=== PATIENT | male | born 1950 | race Caucasian/White ===

== ENCOUNTER 2019-01-27 03:48 | Observation (INO) | payer MEDICARE, BC, SELFPAY ==
[2019-01-27] VITALS (11 sets, daily range): BP systolic 106–158; BP diastolic 61–86; PULSE 72–91; RESP 14–20; TEMP 35.6–36.9; O2SAT 93–100; BMI 32.2; BMI 28.3
--- NOTE | 2019-01-27 03:52 | RAD_ITS ---
STUDY: X-RAY CHEST REASON FOR EXAM: Male, 68 years old. Recent fall and possible syncope. TECHNIQUE: Single AP portable view of the chest. COMPARISON: Prior comparison studies are not available for review at this time. FINDINGS: Cardiac monitoring leads are present. The lungs are clear and expanded. There is no demonstrated pleural abnormality. Normal size heart. Normal mediastinum and bailey. Normal visualized pulmonary arteries. Normal visualized aortic arch and descending thoracic aorta. Normal visualized thoracic spine. Normal visualized ribs, clavicles, and shoulders. There is no demonstrated abnormality of the visualized soft tissue structures of the upper abdomen. RAD/Chest 1 View (Portable) IMPRESSION: No radiographic evidence of acute cardiopulmonary disease. Electronically Signed: Joana Milan MD at 4:30 EDT , Service support ,
--- NOTE | 2019-01-27 03:52 | CT_ITS ---
STUDY: CT BRAIN WITHOUT CONTRAST REASON FOR EXAM: Male, 68 years old. Patient was found unconscious with evidence for closed head injury. RADIATION DOSAGE (If Supplied By Facility): CTDIvol = ( 44.99 ) mGy, DLP = ( 914.22 ) mGycm TECHNIQUE: Transaxial CT imaging of the brain was performed without administration of intravenous contrast material. Multiplanar reformations are submitted for interpretation. Individualized dose optimization techniques were used for this CT. COMPARISON: No relevant priors. FINDINGS: There is a soft tissue contusion adjacent to the right parietal cranium with probable associated laceration. Normal calvarium. There is mild cerebral atrophy with widening of the extra-axial spaces and ventricular dilatation. Normal white matter tracts of the cerebral hemispheres. Normal basal ganglia and thalami. Normal brainstem. Normal cerebellum. There is no intracranial hemorrhage. There is minimal atherosclerotic calcification of the intracranial arteries. Normal visualized paranasal sinuses. CT/Brain/Head without Contrast IMPRESSION: 1. No CT evidence of acute intracranial hemorrhage. 2. Right parietal scalp contusion. Electronically Signed: Joana Milan MD at 4:45 EDT , Service support ,
--- NOTE | 2019-01-27 03:52 | EKG12_ITS ---
Test Reason : CP Blood Pressure : / mmHG Vent. Rate : 070 BPM Atrial Rate : 070 BPM P-R Int : 110 ms QRS Dur : 082 ms QT Int : 424 ms P-R-T Axes : 040 044 -08 degrees QTc Int : 457 ms Sinus rhythm with short CO Otherwise normal ECG Confirmed by RADHA HAMMOND ([id number]), news assignment editor MARISELA ANDERSON ([id number]) on 02/01/2019 2:05:12 PM Referred By: SNEHA Confirmed By:RADHA HAMMOND
--- NOTE | 2019-01-27 03:53 | CT_ITS ---
STUDY: CT CERVICAL SPINE WITHOUT CONTRAST REASON FOR EXAM: Male, 68 years old. Recent closed head injury and possible syncope. RADIATION DOSAGE (If Supplied By Facility): CTDIvol = ( 24.23 ) mGy, DLP = ( 621.91 ) mGycm TECHNIQUE: High resolution transaxial imaging was performed without contrast material. Sagittal and coronal images were reconstructed. Individualized dose optimization techniques were used for this CT. COMPARISON: Prior comparison studies are not available for review at this time. FINDINGS: Normal craniovertebral junction. There are degenerative changes of the anterior atlantoaxial articulation. Normal odontoid process. Normal cervical lordosis. The vertebral bodies have generally normal height and alignment. C2-3: Normal endplates. Normal disc height and morphology. Normal central canal and intervertebral neuroforamina. C3-4: There is severe left-sided neural foraminal narrowing and moderate right-sided foraminal narrowing secondary to uncovertebral and facet joint arthropathy. There is no significant central acquired canal stenosis. C4-5: Normal endplates. Normal disc height and morphology. Normal central canal. There is severe left-sided neural foraminal narrowing secondary to moderately severe left-sided facet joint arthropathy. The right neural foramen is mildly narrowed. C5-6: There is narrowing of the disc space with small endplate osteophytes. There is severe bilateral neural foraminal narrowing with uncovertebral and facet joint arthropathy. There is a disc bulge and osteophyte complex with mild central acquired canal stenosis. C6-7: There is narrowing of the disc space with small endplate osteophytes. There is a broad disc protrusion osteophyte complex with mild central acquired canal stenosis. There is severe bilateral middle foraminal narrowing secondary to uncovertebral joint hypertrophy. C7-T1: Normal endplates. Normal disc height and morphology. Normal central canal and intervertebral neuroforamina. Bilateral lung apices appear to be clear. Patchy lucencies are visible to right lung apex probably related to paraseptal emphysema. Paraspinal soft tissues are within normal limits. The nasopharynx, oropharynx, hypopharynx and larynx have a normal appearance. CT/Spine Cervical without Contras IMPRESSION: 1. No CT evidence of acute compression or displaced fracture. 2. Multilevel degenerative disc disease and degenerative arthropathy of the cervical spine with neural foraminal narrowing and acquired canal stenosis. Electronically Signed: Joana Milan MD at 4:56 EDT , Service support ,
[2019-01-27 04:37] LABS: Absolute Lymphocyte Count 0.99 X10^3/uL (0.83-4.51); Absolute Neutrophil Count 10.5 X10^3/uL (2.0-7.7); Basophil# 0.03 X10^3/uL; Basophil% 0.3 % (0-1); Eosinophil# 0.03 X10^3/uL; Eosinophils% 0.3 % (0-5); Hemoglobin 10.7 g/dL (13.0-16.5); Lymphocyte # 0.99 X10^3/ul (4.0); Lymphocyte % 8.3 % (19-41); Mean Corp Hgb Conc 35.7 g/dL (32-36); Mean Corpuscular Hgb 32.8 pg (27.0-32.0); Mean Platelet Vol. 10.5 fl (6.2-12.0); Monocyte% 3.3 % (0-10); NRBC Flagged by Analyzer 0 % (0-5); Neutrophil # 10.45 X10^3/uL (2.7-7.7); Neutrophil % 87.1 % (47-70); Platelet Count 205 K/mm3 (150-450); RBC Distribution Width CV 11.9 % (11.6-14.6); RBC Distribution Width SD 39.8 fl (35.1-43.9); Red Blood Count 3.26 M/mm3 (4.6-6.2)
[2019-01-27] MEDS: 0.9% Normal Saline 1,000 ML 150 ML IV ×3 (04:45→19:15)
[2019-01-27 04:55] LABS: Anion Gap 14 (5-15); BUN 14 mg/dL (7-18); BUN/Creat Ratio 20.1 RATIO (10-20); Calcium,Total 8.5 mg/dL (8.5-10.1); Chloride 94 mmol/L (98-107); EST Glomerular Filtration Rate 121 mL/min (>60); Est Glom Filt Rate - Afr Amer 146 mL/min (>60); Estimated Creatinine Clearance 75.03 ml/min; Glucose 169 mg/dL (74-106); Sodium Level 130 mmol/L (136-145)
--- NOTE | 2019-01-27 05:27 | PCM.HP.STD ---
Problem List (1) Chest pain Status: Acute Qualifiers: Chest pain type: unspecified Qualified Code(s): R07.9 - Chest pain, unspecified (2) CAD (coronary artery disease) Status: Chronic Qualifiers: Coronary Disease-Associated Artery/Lesion type: unspecified vessel or lesion type [place] vs. transplanted heart: unspecified whether [place] or transplanted heart Associated angina: angina presence unspecified Qualified Code(s): I25.10 - Atherosclerotic heart disease of [place] coronary artery without angina pectoris (3) HTN (hypertension) Status: Chronic Qualifiers: Hypertension type: essential hypertension Qualified Code(s): I10 - Essential (primary) hypertension (4) HLD (hyperlipidemia) Status: Chronic Qualifiers: Hyperlipidemia type: unspecified Qualified Code(s): E78.5 - Hyperlipidemia, unspecified (5) Obesity Status: Chronic Qualifiers: Obesity type: due to excess calories Serious obesity comorbidity presence: with serious comorbidity (6) Diabetes mellitus, type II Status: Chronic Qualifiers: Diabetes mellitus skilled nursing insulin use: without termite technician use Diabetes mellitus complication status: with other specified complication Qualified Code(s): E11.69 - Type 2 diabetes mellitus with other specified complication (7) Alcohol abuse Status: Chronic History of Present Illness Date of Admission: 01/27/19 Chief Complaint: Intoxicated, Fall versus Passed out, CP The patient is a 68 y/o M w/ PMHx: CAD s/p PCI, EtOH Abuse, HTN, HLD, Obesity who presents to the [facility] [place] ED On 01/27/19 s/p fall at unclear time while intoxicated, either passed out or fell but does not recall the event, hitting his head on the deck, found by his with scalp contusion, headache with nausea and notable fatigue with noted onset of chest pain while in the ED, described as mid sternal and left-sided chest tightness with no further radiation with associated mild dyspnea, increased nausea with no emesis and no specific diaphoresis, rated 7 out of 10, very transient in nature with resolution while in the emergency room, rated 4 out of 10 upon evaluation but reproducible with palpation. Work-up in the ED included T 96.1, heart rate 81, BP 106/61, respiratory rate 20, 98% on room air, CBC with W BC 12, hemoglobin 10.7, platelet 205 with left shift, BMP with sodium 130, chloride 94, glucose 169, troponin less than 0.015, ethyl alcohol 145, EKG with sinus rhythm with no acute evidence of ischemia, chest x-ray with no acute cardiopulmonary findings, CT head with no acute intracranial hemorrhage, right parietal scalp contusion present, CT cervical spine with no acute evidence of compression or displaced fracture with multilevel degenerative disc disease and degenerative arthropathy of the cervical canal with neural foraminal narrowing and acquired canal stenosis. In the ED patient scalp laceration was sutured per ED physician. In the ED patient administered aspirin 162 mg p.o. x1 in addition to normal saline. Past Medical History Past Medical History (Chronic Problems): Chronic Problems CAD (coronary artery disease) (Chronic) HTN (hypertension) (Chronic) HLD (hyperlipidemia) (Chronic) Obesity (Chronic) Diabetes mellitus, type II (Chronic) Alcohol abuse (Chronic) Allergies celecoxib [From Celebrex] Allergy (Verified 01/27/19 03:54) Other Home Medications: Ambulatory Orders Medication Instructions Recorded Atorvastatin Calcium [Lipitor] 80 mg PO QHS 01/27/19 Carvedilol 6.25 mg PO BID 01/27/19 Hydrochlorothiazide 12.5 mg PO DAILY 01/27/19 Lisinopril 40 mg PO DAILY 01/27/19 Metformin HCl 1,000 mg PO BID 01/27/19 Surgical History: - - PCI x3, most recently greater than 2 years prior, bilateral knee arthroscopic surgery. Psychiatric History: No pertinent psych hx Lives: Spouse/ Significant Other Smoking Status: Former smoker - Patient quit cigarette tobacco usage greater than 20 years prior with prior to this 1/2 pack/day cigarette tobacco usage. Tobacco Use: Non-smoker Alcohol: Heavy - Patient with 2 beer and several mixed drinks, at least 2 double shot whiskeys daily. Drugs: None - *Family History Maternal History Items: Hypertension Paternal History Items: Unknown - Patient notes that his father lived to age 87 but he does not know him well nor his medical history. Sibling History Items: - - Patient notes a brother who has a history of lung cancer with concurrent tobacco use history. Review of Systems Constitutional: Reports: Anorexia, Malaise, Weakness, Fatigue. Denies: Chills, Fever, Weight Change HEENT: Reports: Head Aches. Denies: Sinus Congestion, Sinus Drainage Cardiovascular: Reports: Chest Pain, Chest Tightness, Light Headedness, Syncope. Denies: Chest Pressure, Heaviness, Orthopnea, Palpitations Respiratory: Denies: Cough, Shortness of breath at rest, Sputum production Gastrointestinal: Reports: Nausea. Denies: Abdominal Pain, Vomiting Genitourinary: Denies: Dysuria Musculoskeletal: Reports: Back Pain, Joint Pain, Neck Pain, Shoulder Pain. Denies: Joint Tenderness Skin: Reports: Skin Changes. Denies: Rash, Wounds Neurological: Denies: Numbness, Tingling, Focal weakness Psychiatric: Denies: Anxiety, Depression, Homicidal Ideations, Suicidal Ideations Hematologic/ Lymphatic: Reports: Anemia. Denies: Easy Bruising, Easy Bleeding VTE Information - Inpt Only VTE Present on Admission: No VTE Mechan Device Prophylaxis: SCD's VTE Pharm Prophylaxis ordered?: No Reason prophylaxis not ordered:: Medical Contraindication Patient Problems: Active and Suspected Problems Chest pain (Acute) Subjective: Seated upright in ED bed, fatigued appearing, notes ongoing headache. Objective: Physical Examination: General: awake, alert, oriented x 3 and cooperative, seated upright in the ED bed, fatigued and uncomfortable appearing, disheveled. Skin: normal color, turgor, no icterus, cyanosis except ecchymoses to the right lateral face, right sided face and lid edema, posterior scalp laceration status post suturing with bleeding currently controlled. HEENT: Recent head trauma with fall with laceration, sutured, bleeding currently controlled/NC, EOMI, PERRLA, dry MM, no carotid bruits or JVD noted ecchymoses to the face as noted, see skin. Lungs: CTA bilaterally, moderate effort, mild decrease BL bases, no rales, ronchi or wheezing. Heart: Regular rate and rhythm; no gallop, rub audible. Abdomen: soft, NTTP, ND, normal BS, positive HM. Extremities: no cyanosis, clubbing, or edema. Neurological: patient awake, alert, oriented x 3; cognitive function improving, despite intoxication, moderately near baseline intact; pupils equally reactive to light and accomodation; cranial nerves II-XII grossly normal, moving all 4 extremities, no focal deficits, strength moderately to severely global decrease secondary to acute presentation. Psychiatric: affect appears fatigued, uncomfortable, no acute evidence of depressive or anxiety feelings. - Physical Exam Vital Signs Temp Pulse Resp BP Pulse Ox 96.1 F L 81 20 H 106/61 98 09/11/19 03:48 01/27/19 03:48 01/27/19 03:48 01/27/19 03:48 01/27/19 03:48 Oxygen Delivery Method Room Air Weight: 224 lb 13.944 oz Body Mass Index (BMI) 32.2 Laboratory Tests Past 24 Hrs 01/27/19 01/27/19 01/27/19 04:30 04:30 04:30 WBC 12.0 H RBC 3.26 L Hgb 10.7 L Hct 30.0 L MCV 92.0 MCH 32.8 H MCHC 35.7 RDW Std Deviation 39.8 RDW Coeff of Jolene 11.9 Plt Count 205 MPV 10.5 Immature Gran % (Auto) 0.700 Neut % (Auto) 87.1 H Lymph % (Auto) 8.3 L [place] % (Auto) 3.3 Eos % (Auto) 0.3 Baso % (Auto) 0.3 Absolute Neuts (auto) 10.5 H Absolute Lymphs (auto) 0.99 Nucleated RBC % 0 Sodium 130 L Potassium 4.0 Chloride 94 L Carbon Dioxide 22.0 Anion Gap 14 BUN 14 Creatinine 0.70 Estim Creat Clear Calc 75.03 Est GFR (MDRD) Af Amer 146 Est GFR (MDRD) Non-Af 121 BUN/Creatinine Ratio 20.1 H Glucose 169 H Calcium 8.5 Troponin I < 0.015 Ethyl Alcohol 145.0 Assessment/Plan All Active Problems Chest pain (Acute) The patient is a 68 y/o M w/ PMHx: CAD s/p PCI, EtOH Abuse, HTN, HLD, Obesity who presents to the [facility] [place] ED On 01/27/19 s/p fall at unclear time while intoxicated, either passed out or fell but does not recall the event, hitting his head on the deck, found by his with scalp contusion, headache with nausea and notable fatigue with noted onset of chest pain while in the ED, described as mid sternal and left-sided chest tightness. 1. Chest Pain: Reproducible upon evaluation, suspect component of musculoskeletal, strain with recent fall. Work-up in the ED included T 96.1, heart rate 81, BP 106/61, respiratory rate 20, 98% on room air, CBC with W BC 12, hemoglobin 10.7, platelet 205 with left shift, BMP with sodium 130, chloride 94, glucose 169, troponin less than 0.015, ethyl alcohol 145, EKG with sinus rhythm with no acute evidence of ischemia, chest x-ray with no acute cardiopulmonary findings. Will admit to PCU, place on a monitored bed to assure no acute myocardial infarction with serial cardiac enzymes and EKGs. Given presentation with recent fall, possible trauma while intoxicated will defer immediate intent for cardiac stress testing until improved clinical status. ASA, NG, morphine. Mag pending, FLP in AM. 2. EtOH Abuse with intoxication, suspected mechanical fall versus passed out: Patient notes routine consumption of alcohol daily, specifically beer or mixed drinks, notes usually 2 beers and 2 double shot of mixed whiskey drinks. Will maintain on CIWA protocol, MVI, thiamine and folic acid. Magnesium and phosphorus pending. Case management consulted. 3. Hyponatremia, chronic, secondary to alcohol abuse: Admission sodium 130 likely secondary to alcohol abuse in addition to hydrochlorothiazide usage, holding, hydrating given acute intoxication presentation, repeat BMP in a.m. 4. Normocytic anemia, chronic: Admission hemoglobin 10.7, appears anemic prior, will obtain iron panel, vitamin B12 and folic acid level. 5. CAD: s/p prior PCI, will maintain on aspirin, statin, Coreg, lisinopril regimen. 6. Diabetes mellitus type II: Hold oral home regimen, ADA diet, accu checks w/ ISS. 7. Hypertension: Continue home regimen including Coreg, lisinopril, holding hydrochlorothiazide with further hold parameters, PRN hydralazine. 8. Hyperlipidemia: Continue home statin regimen. AM FLP. 9. Obesity: Weight loss and lifestyle changes encouraged. 10. DVT prophylaxis: SCDs, given recent fall, laceration with sutures will defer chemoprophylaxis. Code Visit OBSV E&M: 29529 Initial observation care L3
--- NOTE | 2019-01-27 05:29 | ED.DCSUM_ITS ---
- ER Visit Summary Date of Service: 01/27/19 Chief Complaint: [Head injury and chest pain] History of Present Illness: The patient is a 68 M [Zentz to the emergency department complaint of a head injury that occurred this morning. Patient really is not sure what happened. Patient's was sleeping when she woke up to use the restroom noted that all the lights were on outside and so she went to check and see where her was found him on the deck on the ground with a poor blood. Its believe he may have hit his head on the outdoor fireplace. Patient complains of a headache. In route to the hospital he started complaining of chest pain and cramping in his left chest. Patient denies any shortness of breath. He initially denied any neck pain. He denies any abdominal pain. Patient has been drinking. Patient drinks every day. Patient has history of heart disease with 3 cardiac stents last of which were placed about a year ago.] Patient is not on any blood thinners other than a baby aspirin daily. Physical Examination: [HEENT-PERRLA, EOMI. Cranial nerves II through XII grossly intact. TMs clear. Mucous membranes moist. No adenopathy. Patient presented with c-collar in place. Patient had bloody bandage around his head. He has a 1 cm laceration over the right parietal scalp with hematoma and contusion noted. No bony step-offs noted. Patient had some mild diffuse C- spine tenderness on palpation without any bony step-offs noted. Cardiovascular-regular rate and rhythm without murmur or ectopy Lungs-clear to auscultation, chest wall stable without crepitus or subcu emphysema Abdomen-normoactive bowel sounds, soft, nontender, no rebound or rigidity, no peritoneal signs. Extremities-intact ?4, normal range of motion, normal pulses, atraumatic] Test Results: [EKG obtained on arrival showed a sinus rhythm with a ventricular rate of 70 bpm with no acute segment changes. CBC with differential showed a white count of 12,000, hemoglobin 10.7, hematocrit 30, placed 205. Chemistries unremarkable. Troponin is less than 0.15. Alcohol was 145. CT scan of the brain without contrast showed a right scalp hematoma otherwise nothing acute. CT scan of the cervical spine show degenerative changes and canal stenosis. Maribell st x-ray showed nothing acute.] Emergency Department Course and Treatment: [Patient was given 2 baby aspirin. Patient stated that his chest pain resolved without any treatment in the emergency department.] Treatment Plan: [Admit for observation.] Disposition: [Admit] Impression: [Fall with closed head injury Scalp laceration 1 cm with simple repair Chest pain] This note was generated with [employer] dictation software. It may contain incorrect words, spelling, and punctuation that were not noted in review of the chart prior to signing ED Disposition - Plan for ED Patient: Referrals: Brandon Choi MD [Primary Care Provider] -
[2019-01-27] MEDS: Aspirin 81 MG TAB.CHEW 162 MG PO (05:52)
--- NOTE | 2019-01-27 06:15 | EKG12_ITS ---
Test Reason : CP ADMISSION Blood Pressure : / mmHG Vent. Rate : 078 BPM Atrial Rate : 078 BPM P-R Int : 148 ms QRS Dur : 080 ms QT Int : 422 ms P-R-T Axes : 048 035 -26 degrees QTc Int : 481 ms Normal sinus rhythm Nonspecific T wave abnormality Prolonged QT Abnormal ECG When compared with ECG of 27-JAN-2019 04:02, MANUAL COMPARISON REQUIRED, DATA IS UNCONFIRMED Confirmed by LING REYNOLDS, EITAN ([id number]), editor dictionary MARISELA ANDERSON ([id number]) on 02/01/2019 4:03:03 PM Referred By: VIJAY EUCEDA Confirmed By:RACHEL DUBON MD
[2019-01-27 06:35] LABS: AST(SGOT) 22 U/L (15-37); Alanine Aminotransfer ALT/SGPT 34 U/L (16-61); Albumin, Serum 3.5 g/dL (3.2-5.0); Alkaline Phosphatase 77 U/L (45-117); Bilirubin, Direct 0.17 mg/dL (0.00-0.30); Magnesium 1.9 mg/dL (1.6-2.6); Phosphorus 3.9 mg/dL (2.5-4.9); Protein, Total 6.5 g/dL (6.4-8.2)
[2019-01-27] MEDS: Thiamine Hydrochloride 100 MG Tablet PO ×2 (09:31→16:48)
[2019-01-27] MEDS: Famotidine 20 MG Tablet PO ×2 (09:31→21:16)
[2019-01-27] MEDS: Aspirin E.C. 81 MG Tablet PO (09:31)
[2019-01-27] MEDS: Lisinopril 40 MG Tablet PO (09:31)
[2019-01-27] MEDS: Carvedilol 6.25 MG Tablet PO ×2 (09:31→21:16)
[2019-01-27] MEDS: Folic Acid 1 MG Tablet PO (09:31)
[2019-01-27] MEDS: Multivitamins,Ther W-Minerals Tablet 1 TABLET PO (09:31)
[2019-01-27 09:41] LABS: Bedside Glucose 110 mg/dL (70-110)
[2019-01-27 11:55] LABS: Bedside Glucose 190 mg/dL (70-110)
--- NOTE | 2019-01-27 13:10 | PN_ITS ---
Patient Problems: Active and Suspected Problems Chest pain (Acute) Subjective: Patient seen and examined. He was admitted in the early hours of this morning on account of a mechanical fall due to intoxication. He also has some chest pain on admission which was reproducible with palpation and thought to be musculoskeletal from fall. CT of the head showed no acute intracranial hemorrhage but he had a right scalp parietal contusion and CT of the cervical spine showed no evidence of compression or fracture. He had scalp laceration sutured in the ED and was admitted to manage for mechanical fall due to alcohol intoxication. Patient seen and examined this morning. He was calm and had no complaints. Chest pain had resolved. Patient admits to drinking too much and states he had been on vacation and still felt he was in the vacation mode. He cannot remember having any lightheadedness or dizziness or palpitations before passing out and states he thinks he passed out because he just drunk so much he passed out and was found on his deck by his . He admits to such heavy drinking episodes but states they are occasional. He denies ever being in rehab for alcohol abuse though he admits to needing help with his alcohol abuse. Review of systems otherwise negative. Labs and vitals reviewed. Chest pain is resolved. Vitals/I&O's: Vital Signs Temp Pulse Resp BP Pulse Ox 98.3 F 91 18 134/86 H 98 01/27/19 09:26 01/27/19 09:26 01/27/19 09:26 01/27/19 09:26 01/27/19 09:26 Oxygen Delivery Method Room Air Weight: 203 lb 4.259 oz Body Mass Index (BMI) 28.3 Intake and Output for Last 24 Hours 01/25/19 01/26/19 01/27/19 23:59 23:59 23:59 Intake Total 1482.5 / 1482.5 Balance 1482.5 / 1482.5 General: Alert, Oriented x3, Cooperative HEENT: Atraumatic, PERRLA, EOMI, Normocephalic Oral: Dry Mucosa Neck: Supple, No JVD, Negative Carotid Bruits Lungs: Clear to auscultation, Normal air movement, No rhonchi, No wheeze, No rales Cardiovascular: Regular rate, Regular Rhythm, Normal S1, Normal S2, No murmurs Abdomen: Bowel Sounds Present, Soft, Non Tender, Non-Distended, No Hepato- splenomegaly Extremities: No clubbing, No cyanosis, No edema, Capillary Refill Less than 3 Seconds Skin: - - sutured laceration on right parietal scalp Musculoskeletal: No Tenderness to Palpation of Joints or Extremities Lymphatic: No Cervical, Supraclavicular, or Inguinal Adenopathy Neurological: Cranial nerves II-XII grossly intact, Neuro grossly intact, Motor Exam 5/5 strength throughout Psych/Mental Status: Normal Affect, Appropriate, Alert and oriented to time, place, person, mood and affect Laboratory Results 01/27/19 04:30: WBC 12.0 H, RBC 3.26 L, Hgb 10.7 L, Hct 30.0 L, MCV 92.0, MCH 32.8 H, MCHC 35.7, RDW Std Deviation 39.8, RDW Coeff of Jolene 11.9, Plt Count 205, MPV 10.5, Immature Gran % (Auto) 0.700, Neut % (Auto) 87.1 H, Lymph % (Auto) 8.3 L, [place] % (Auto) 3.3, Eos % (Auto) 0.3, Baso % (Auto) 0.3, Absolute Neuts (auto) 10.5 H, Absolute Lymphs (auto) 0.99, Nucleated RBC % 0 01/27/19 04:30: Sodium 130 L, Potassium 4.0, Chloride 94 L, Carbon Dioxide 22.0, Anion Gap 14, BUN 14, Creatinine 0.70, Estim Creat Clear Calc 75.03, Est GFR (MDRD) Af Amer 146, Est GFR (MDRD) Non-Af 121, BUN/Creatinine Ratio 20.1 H, Glucose 169 H, Calcium 8.5, Troponin I < 0.015 01/27/19 04:30: Ethyl Alcohol 145.0 01/27/19 04:30: Total Bilirubin 0.60, Direct Bilirubin 0.17, AST 22, ALT 34, Alkaline Phosphatase 77, Total Protein 6.5, Albumin 3.5, Globulin 3.0 01/27/19 04:30: Phosphorus 3.9, Magnesium 1.9 01/27/19 07:35: Troponin I < 0.015 01/27/19 09:29: POC Glucose 110 01/27/19 10:35: Troponin I 0.017 01/27/19 11:51: POC Glucose 190 H Diagnostic Data Brain CT 01/27/19 03:52 IMPRESSION: 1. No CT evidence of acute intracranial hemorrhage. 2. Right parietal scalp contusion. Electronically Signed: Joana Milan MD at 4:45 EDT , Service support , Chest X-Ray 01/27/19 03:52 IMPRESSION: No radiographic evidence of acute cardiopulmonary disease. Electronically Signed: Joana Milan MD at 4:30 EDT , Service support , Cervical Spine CT 01/27/19 03:53 IMPRESSION: 1. No CT evidence of acute compression or displaced fracture. 2. Multilevel degenerative disc disease and degenerative arthropathy of the cervical spine with neural foraminal narrowing and acquired canal stenosis. Electronically Signed: Joana Milan MD at 4:56 EDT , Service support , Current Medications Acetaminophen (Tylenol) 650 mg PO Q6H PRN PRN PRN Reason: Non-cardiac pain (mod-severe) Hydrocodone Bitart/Acetaminophen ([place] 5mg-325mg) 1 - 2 tablet PO Q6H PRN PRN PRN Reason: MOD-SEVERE PAIN (4-10/10) Al Hydroxide/Mg Hydroxide (Mylanta Ii) 15 - 30 ml PO Q4H PRN PRN PRN Reason: INDIGESTION Albuterol Sulfate (Ventolin Aerosols) 2.5 mg INHALATION Q2H PRN PRN PRN Reason: dyspnea, wheezing Aspirin (Ecotrin) 81 mg PO DAILY@0800 [facility] Last Admin: 01/27/19 09:31 Dose: 81 mg Documented by: Atorvastatin Calcium (Lipitor) 80 mg PO QHS [facility] Carvedilol (Coreg) 6.25 mg PO BID [facility] Last Admin: 01/27/19 09:31 Dose: 6.25 mg Documented by: Dextrose (D50w Syringe) 0 gm IV X1 PRN; Protocol PRN Reason: Hypoglycemia Famotidine (Pepcid) 20 mg PO BID [facility] Last Admin: 01/27/19 09:31 Dose: 20 mg Documented by: Folic Acid (Folic Acid) 1 mg PO DAILY@0800 [facility] Stop: 01/29/19 08:01 Last Admin: 01/27/19 09:31 Dose: 1 mg Documented by: Glucagon () 1 mg IM .X1 PRN PRN Reason: Hypoglycemia Hydralazine HCl (Apresoline Iv) 10 mg IV Q4H PRN PRN PRN Reason: SBP > 160 Sodium Chloride () 1,000 mls @ 150 mls/hr IV .Q6H40M [facility] Last Admin: 01/27/19 11:19 Dose: 150 mls/hr Documented by: Insulin Human Lispro (Humalog Kwikpen (Bkc)) 0 unit SC [facility]; Protocol Last Admin: 01/27/19 12:18 Dose: Not Given Documented by: Lisinopril (Zestril) 40 mg PO DAILY [facility] Last Admin: 01/27/19 09:31 Dose: 40 mg Documented by: Lorazepam (Ativan) 2 mg PO Q2H PRN PRN; Protocol PRN Reason: CIWA score > 8 but <15 Lorazepam (Ativan) 2 mg PO UD PRN; Protocol PRN Reason: CIWA score >/=15. Lorazepam (Ativan) 2 mg IV Q2H PRN PRN; Protocol PRN Reason: CIWA score > 8 but <15 Lorazepam (Ativan) 2 mg IV UD PRN; Protocol PRN Reason: CIWA score >/=15. Magnesium Hydroxide (Milk Of Magnesia) 30 ml PO DAILY PRN PRN Reason: Constipation Morphine Sulfate () 1 - 2 mg IV Q4H PRN PRN PRN Reason: PAIN Multivitamins/Minerals ([facility]ivitamin With Minerals) [facility] Last Admin: 01/27/19 09:31 Dose: 1 tablet Documented by: Nitroglycerin (Nitrostat) 0.4 mg SUBLINGUAL Q5M PRN PRN Reason: CARDIAC/CHEST PAIN Ondansetron HCl (Zofran) 4 mg IV Q8H PRN PRN PRN Reason: NAUSEA/VOMITING Thiamine HCl (Vitamin B1) [facility] Stop: 01/29/19 17:01 Last Admin: 01/27/19 09:31 Dose: 100 mg Documented by: Medical Necessity - Tobacco Use Smoking Status: Former smoker Tobacco Use: Non-smoker Assessment/Plan All Active Problems Chest pain (Acute) 1. Right parietal scalp laceration due to mechanical fall * CT had was negaive for any intracranial bleed or fracture * laceration sutured in ED * on Tylenol and [place] for pain * 2. Mechanical fall due to alcohol intoxication * Admits to binge drinking until he passed out. Fell and hit his head. * Alcohol level is 145 on admission. * EKG showed no acute ST changes and chest x-ray showed no acute pulmonary findings. * PT OT consult. For precautions. * 3. Chest pain likely musculoskeletal: * Chest pain started after he woke up from the fall and was reproducible with palpation. * Chest pain resolved at time of review. EKG showed no acute ST changes and troponins were negative. * on tylenol and norco. WIll defer on stress testing for now. * 4. Hyponatremia: Na was 130 on admission; likely chronic in light of his chronic alcohol abuse. 5. CAD s/p stents: on aspirin, statin, coreg and lisinopril 6. TYpe 2 diabetes mellitus: on ISS. Accuchecks ACHS. On metformin at home; will hold for now. 7. Hypertension: on coreg and lisinopril. HCTZ on hold o/a of hyponatremia. BP well controlled 8. Hyperlipidemia: on statin DVT prophylaxis: SCDs. No anticoagulation o/a of recent fall and scalp laceration Code Visit OBSV E&M: 58125 Subsequent observation care L2
--- NOTE | 2019-01-27 15:18 | CHAPLAIN ---
Type of Pastoral Visit _x__ Initial Visit ___ Follow-up Visit ___ On-call Visit ___ General Patient Visit ___ Spiritual Assessment ___ Family Conference ___ Bereavement ___ Rapid Response ___ Code Blue ___ Other (describe below) Pastoral Care Referral From _x__ Patient ___ Family ___ Nurse ___ Physician ___ Bench Scientist ___ Exhibitions And Collections Manager ___ Other (describe below) Sacrament/Intervention _x__ Active listening ___ Anointing ___ Congregation ___ Bereavement ___ Communion _x__ Kristin exploration ___ _x__ Life review _x__ Prayer ___ Reconciliation ___ Sacrament of Sick _x__ Supportive presence ___ Wedding ___ Other (describe below) Pastoral Comments spouse encourages patient to talk with this bow maker production about the reasons for his self medicating, his spiritual resources and thoughts; pt is open and willing to discuss these matters and welcomes visit and prayer; pt says that he is spiritual and Catholic but is not involved in a local orthodox;
[2019-01-27] MEDS: Insulin Lispro 100 UNIT/ML INSULN.PEN SC ×2 (16:48→21:16)
[2019-01-27 16:51] LABS: Bedside Glucose 178 mg/dL (70-110)
[2019-01-27 21:15] LABS: Bedside Glucose 195 mg/dL (70-110)
[2019-01-27] MEDS: Atorvastatin Calcium 80 MG Tablet PO (21:16)
[2019-01-28 00:13] VITALS: PULSE 80
[2019-01-28] MEDS: 0.9% Normal Saline 1,000 ML 150 ML IV (02:01)
[2019-01-28 03:00] VITALS: BP 130/69; PULSE 87; RESP 18; TEMP 36.8; O2SAT 98
[2019-01-28 03:04] VITALS: PULSE 82
[2019-01-28 05:52] LABS: Absolute Neutrophil Count 3.3 X10^3/uL (2.0-7.7); Basophil# 0.01 X10^3/uL; Basophil% 0.2 % (0-1); Eosinophil# 0.03 X10^3/uL; Eosinophils% 0.6 % (0-5); Hematocrit 22.3 % (40-54); Hemoglobin 7.6 g/dL (13.0-16.5); Lymphocyte % 18.7 % (19-41); Mean Corp Hgb Conc 34.1 g/dL (32-36); Mean Corpuscular Hgb 32.2 pg (27.0-32.0); Mean Corpuscular Volume 94.5 fL (80-94); Mean Platelet Vol. 10.6 fl (6.2-12.0); Monocyte# 0.56 X10^3/uL; Monocyte% 11.6 % (0-10); NRBC Flagged by Analyzer 0 % (0-5); Neutrophil % 68.5 % (47-70); Platelet Count 158 K/mm3 (150-450); RBC Distribution Width CV 12.4 % (11.6-14.6); RBC Distribution Width SD 42.6 fl (35.1-43.9); Red Blood Count 2.36 M/mm3 (4.6-6.2); White Blood Count 4.8 K/mm3 (4.4-11.0)
--- NOTE | 2019-01-28 05:55 | EKG12_ITS ---
Test Reason : AM EKG Blood Pressure : / mmHG Vent. Rate : 076 BPM Atrial Rate : 076 BPM P-R Int : 154 ms QRS Dur : 080 ms QT Int : 394 ms P-R-T Axes : 036 014 017 degrees QTc Int : 443 ms Normal sinus rhythm Cannot rule out Inferior infarct , age undetermined Abnormal ECG When compared with ECG of 27-JAN-2019 06:10, MANUAL COMPARISON REQUIRED, DATA IS UNCONFIRMED Confirmed by LING REYNOLDS, EITAN ([id number]), digital editor MARISELA ANDERSON ([id number]) on 02/01/2019 4:09:11 PM Referred By: DR EUCEDA Confirmed By:RACHEL DUBON MD
[2019-01-28] MEDS: Insulin Lispro 100 UNIT/ML INSULN.PEN SC (06:42)
[2019-01-28 06:51] LABS: Bedside Glucose 151 mg/dL (70-110)
[2019-01-28 07:05] VITALS: PULSE 73
[2019-01-28 07:16] LABS: Anion Gap 7 (5-15); BUN 11 mg/dL (7-18); BUN/Creat Ratio 13.6 RATIO (10-20); Calcium,Total 7.7 mg/dL (8.5-10.1); Chloride 108 mmol/L (98-107); Cholesterol 113 mg/dL (200); Creatinine, Serum 0.81 mg/dL (0.70-1.30); EST Glomerular Filtration Rate 101 mL/min (>60); Est Glom Filt Rate - Afr Amer 122 mL/min (>60); Estimated Creatinine Clearance 95.55 ml/min; Ferritin 77 ng/mL (26-388); Glucose 152 mg/dL (74-106); High Density Lipoprotein 40 mg/dL; Iron 91 ug/dL (65-175); Iron Binding Capacity,Total 266 ug/dL (250-450); PERCENT IRON SATURATION 34.2 % (15.0-55.0); Sodium Level 141 mmol/L (136-145); Triglycerides 91 mg/dL; Very Low Density Lipoprotein 18 mg/dL (5-40)
[2019-01-28 07:35] VITALS: O2SAT 95
[2019-01-28] MEDS: Thiamine Hydrochloride 100 MG Tablet PO (07:43)
[2019-01-28] MEDS: Folic Acid 1 MG Tablet PO (07:43)
[2019-01-28] MEDS: Aspirin E.C. 81 MG Tablet PO (07:43)
[2019-01-28] MEDS: Multivitamins,Ther W-Minerals Tablet 1 TABLET PO (07:43)
[2019-01-28 09:08] VITALS: BP 153/79; PULSE 90; RESP 18; TEMP 37; O2SAT 100
[2019-01-28] MEDS: Lisinopril 40 MG Tablet PO (09:10)
[2019-01-28] MEDS: Carvedilol 6.25 MG Tablet PO (09:10)
[2019-01-28] MEDS: Famotidine 20 MG Tablet PO (09:10)
[2019-01-28 09:50] LABS: Hematocrit 23.8 % (40-54); Hemoglobin 8.2 g/dL (13.0-16.5)
--- NOTE | 2019-01-28 09:56 | DCINST_ITS ---
- Discharge Diagnoses Current Active Problems: Current Active and Chronic Problems Chest pain (Acute) CAD (coronary artery disease) (Chronic) HTN (hypertension) (Chronic) HLD (hyperlipidemia) (Chronic) Obesity (Chronic) Diabetes mellitus, type II (Chronic) Alcohol abuse (Chronic) You will use the following diet at home:: Calorie/Carbohydrate Controlled (specify 1200, 1400, etc) - 1800 Your food should be the consistency of: Regular Your liquids should be the consistency of: Regular/Thin Discharge Activity: Return to Normal Activity Weight Bearing Status: Weight bearing as tolerated Call your doctor if you observe: Dizziness, Fainting spells, Uncontrolled pain Instructions: Addiction: Your Treatment Options, When a Patient Falls, Preventing Falls in the Home Additional Instructions: see PCP for repeat CBC in 3-4 days time Allergies/Adverse Reactions: Allergies celecoxib [From Celebrex] Allergy (Verified 01/27/19 03:54) Other Medications to take at Discharge Atorvastatin Calcium [Lipitor] 80 mg PO QHS 01/27/19 Carvedilol 6.25 mg PO BID 01/27/19 Hydrochlorothiazide 12.5 mg PO DAILY 01/27/19 Lisinopril 40 mg PO DAILY 01/27/19 Metformin HCl 1,000 mg PO BID 01/27/19 Primary Care Physician: Brandon Choi MD [Primary Care Provider] - Please follow up with your Primary Care Physician in: one week Test Results: Test results from this visit will be discussed in further detail at your follow- up appointment, if applicable. Proposed Discharge Date: 01/28/19
--- NOTE | 2019-01-28 09:58 | PCM.DC.SUM ---
Discharge Date and Diagnosis Date of Admission: 01/27/19 Date of Discharge: 01/28/19 - Primary Discharge Diagnosis Active and Suspected Problems musculoskeletal Chest pain (Acute) mechanical fall alcohol intoxication - Secondary Discharge Diagnosis Chronic Problems CAD (coronary artery disease) (Chronic) HTN (hypertension) (Chronic) HLD (hyperlipidemia) (Chronic) Obesity (Chronic) Diabetes mellitus, type II (Chronic) Alcohol abuse (Chronic) Hospital Course and Treatment Imaging Results: Diagnostic Data Brain CT 01/27/19 03:52 IMPRESSION: 1. No CT evidence of acute intracranial hemorrhage. 2. Right parietal scalp contusion. Electronically Signed: Joana Milan MD at 4:45 EDT , Service support , Chest X-Ray 01/27/19 03:52 IMPRESSION: No radiographic evidence of acute cardiopulmonary disease. Electronically Signed: Joana Milan MD at 4:30 EDT , Service support , Cervical Spine CT 01/27/19 03:53 IMPRESSION: 1. No CT evidence of acute compression or displaced fracture. 2. Multilevel degenerative disc disease and degenerative arthropathy of the cervical spine with neural foraminal narrowing and acquired canal stenosis. Electronically Signed: Joana Milan MD at 4:56 EDT , Service support , Operations: None Procedures: None Summary of Care Provided: Patient is a 68-year-old male with past medical history as listed. He was admitted through the ED in the early hours of with a complaint of a mechanical fall due to alcohol intoxication. Patient states he was still in the ng to do mood and was sitting on his stick and drinking. He drank so he passed out and fell down. His found him on the deck. He subsequently started complaining of chest pain which was reproducible with palpation was thought to be musculoskeletal. He was brought into the ED on account of the fall and CT of the head done showed no acute intracranial hemorrhage. He did have a right scalp parietal contusion and CT of the cervical spine showed no evidence of fracture or compression. He had scalp laceration sutured in the ED and was admitted and managed for mechanical fall due to alcohol intoxication. Troponins checked were negative and EKG showed no acute ST changes. Chest pain was markedly reproducible with palpation leading to the diagnosis of musculoskeletal chest pain due to mechanical fall. Patient remained stable and pain improved. He was able to ambulate well. On 01/28/2019, hemoglobin was noted to have fallen from 10.7-7.6. This was thought to be hemodilution all of his other cell lines WBC had fallen from 12-4.8 and platelets had also dropped from 205 to 158 with IV fluid administration. Repeat hemoglobin done was 8.2. Patient also stated he had a colonoscopy recently at [facility] and was negative, and he was told to have a follow-up in 5 years time. Patient remained stable and was discharged home on 01/28/2019. He is to follow-up with his primary care doctor and have a repeat CBC in about 3 to 4 days level. Patient counseled strongly about quitting drinking and he said he had gone cold turkey before and plans on doing so now. Patient seen and examined prior to discharge. He had no complaints and felt well. Review of systems otherwise negative. Labs and vitals reviewed. Home medication reviewed on consult. He was very eager to be discharged. o/e: Vital Signs Height 5 ft 11 in Weight: 203 lb 4.259 oz Weight in Pounds 203.3 lbs Pulse Ox 100 Temperature 98.6 F Pulse Rate 90 Respiratory Rate 18 Blood Pressure 153/79 Blood Pressure Position Sitting General: Alert, Oriented x3, Cooperative HEENT: Atraumatic, PERRLA, EOMI, Normocephalic Oral: Dry Mucosa Neck: Supple, No JVD, Negative Carotid Bruits Lungs: Clear to auscultation, Normal air movement, No rhonchi, No wheeze, No rales Cardiovascular: Regular rate, Regular Rhythm, Normal S1, Normal S2, No murmurs Abdomen: Bowel Sounds Present, Soft, Non Tender, Non-Distended, No Hepato-splenomegaly Extremities: No clubbing, No cyanosis, No edema, Capillary Refill Less than 3 Seconds Skin: - - sutured laceration on right parietal scalp Musculoskeletal: No Tenderness to Palpation of Joints or Extremities Lymphatic: No Cervical, Supraclavicular, or Inguinal Adenopathy Neurological: Cranial nerves II-XII grossly intact, Neuro grossly intact, Motor Exam 5/5 strength throughout Psych/Mental Status: Normal Affect, Appropriate, Alert and oriented to time, place, person, mood and affect Plan as above - Physical Exam Vital Signs Temp Pulse Resp BP Pulse Ox 98.6 F 90 18 153/79 H 100 01/28/19 09:08 01/28/19 09:08 01/28/19 09:08 01/28/19 09:08 01/28/19 09:08 Oxygen Delivery Method Room Air Weight: 203 lb 4.259 oz Body Mass Index (BMI) 28.3 Intake and Output for Last 24 Hours 01/26/19 01/27/19 01/28/19 23:59 23:59 23:59 Intake Total 3052.5 / 3492.5 2420 / 2420 Balance 3052.5 / 3492.5 2420 / 2420 Laboratory Tests Past 24 Hrs 01/27/19 01/28/19 01/28/19 10:35 05:25 05:25 WBC RBC Hgb Hct MCV MCH MCHC RDW Std Deviation RDW Coeff of Jolene Plt Count MPV Immature Gran % (Auto) Neut % (Auto) Lymph % (Auto) [place] % (Auto) Eos % (Auto) Baso % (Auto) Absolute Neuts (auto) Absolute Lymphs (auto) Nucleated RBC % Sodium 141 Potassium 4.0 Chloride 108 H Carbon Dioxide 26.0 Anion Gap 7 BUN 11 Creatinine 0.81 Estim Creat Clear Calc 95.55 Est GFR (MDRD) Af Amer 122 Est GFR (MDRD) Non-Af 101 BUN/Creatinine Ratio 13.6 Glucose 152 H Calcium 7.7 L Iron 91 TIBC 266 Iron Saturation 34.2 Ferritin 77 Troponin I 0.017 Triglycerides 91 Cholesterol 113 LDL Cholesterol 55 VLDL Cholesterol 18 HDL Cholesterol 40 Vitamin B12 Pending Folate 28.50 01/28/19 01/28/19 05:25 09:40 WBC 4.8 RBC 2.36 L Hgb 7.6 L 8.2 L Hct 22.3 L 23.8 L MCV 94.5 H MCH 32.2 H MCHC 34.1 RDW Std Deviation 42.6 RDW Coeff of Jolene 12.4 Plt Count 158 MPV 10.6 Immature Gran % (Auto) 0.400 Neut % (Auto) 68.5 Lymph % (Auto) 18.7 L [place] % (Auto) 11.6 H Eos % (Auto) 0.6 Baso % (Auto) 0.2 Absolute Neuts (auto) 3.3 Absolute Lymphs (auto) 0.90 Nucleated RBC % 0 Sodium Potassium Chloride Carbon Dioxide Anion Gap BUN Creatinine Estim Creat Clear Calc Est GFR (MDRD) Af Amer Est GFR (MDRD) Non-Af BUN/Creatinine Ratio Glucose Calcium Iron TIBC Iron Saturation Ferritin Troponin I Triglycerides Cholesterol LDL Cholesterol VLDL Cholesterol HDL Cholesterol Vitamin B12 Folate POC Glucose 01/28/19 01/27/19 01/27/19 06:39 21:13 16:45 POC Glucose 151 H 195 H 178 H 01/27/19 11:51 POC Glucose 190 H Discharge Diet: Low fat/ Low Cholesterol Discharge Activity: Return to Normal Activity Weight Bearing Status: Weight bearing as tolerated Call your doctor if you observe: Dizziness, Fainting spells, Uncontrolled pain Home Medications: Medications to take at Discharge Atorvastatin Calcium [Lipitor] 80 mg PO QHS 01/27/19 Carvedilol 6.25 mg PO BID 01/27/19 Hydrochlorothiazide 12.5 mg PO DAILY 01/27/19 Lisinopril 40 mg PO DAILY 01/27/19 Metformin HCl 1,000 mg PO BID 01/27/19 Primary Care Physician: Brandon Choi MD [Primary Care Provider] - Please follow up with your Primary Care Physician in: one week Patient Instructions: When a Patient Falls, Addiction: Your Treatment Options, Preventing Falls in the Home Disposition: Home Minutes spent on discharge:: 40 Patient Condition:: Stable Medical Necessity - Tobacco Use Smoking Status: Former smoker Tobacco Use: Non-smoker Meaningful Use Info Meaningful Use Diagnoses (Choose all that apply): None applicable Code Visit OBSV E&M: 06973 Observation care discharge
[2019-01-28] MEDS: Acetaminophen 325 MG Tablet 650 MG PO (10:05)
--- NOTE | 2019-01-28 10:12 | CASEMGMT ---
This RN CM to room with CABAN form at this time, explanation done-voices understanding, and pt signed CABAN form at this time. Original to chart and copy to pt at this time. Pt voices no further questions/concerns/needs at this time. SStaten RUMA GARCIA
--- NOTE | 2019-01-28 10:41 | CASEMGMT ---
SW met with patient, introduced self and role at [facility]. SW asked patient if he would like any resources to assist him with managing his ETOH consumption and/or quitting. He said he thinks he can quit cold turkey as he has done it before. He said his will hold him to it and they are a team. He thanked CRIST[facility] for offering. Lindsey MARTINEZ
[2019-01-28 11:03] LABS: Vitamin B12 503 pg/mL (211-911)
== END 2019-01-28 09:58 | disposition home or self-care (01) ==
LOC: ED 04:31 → PCU 05:39
PROVIDERS: Admitting Provider Family Medicine; Emergency Provider Emergency Medicine; Family Provider Family Medicine; PCP Family Medicine; Visit Provider Student in an Organized Health Care Education/Training Program
DX: R07.89 Other chest pain (principal); I25.10 Atherosclerotic heart disease of native coronary artery without angina pectoris; I10 Essential (primary) hypertension; E78.5 Hyperlipidemia, unspecified; E11.9 Type 2 diabetes mellitus without complications; F10.129 Alcohol abuse with intoxication, unspecified; Y90.6 Blood alcohol level of 120-199 mg/100 ml; S01.01XA Laceration without foreign body of scalp, initial encounter; W19.XXXA Unspecified fall, initial encounter; Y93.9 Activity, unspecified; Y92.008 Other place in unspecified non-institutional (private) residence as the place of occurrence of the external cause; Z79.899 Other long term (current) drug therapy; D64.9 Anemia, unspecified; E87.1 Hypo-osmolality and hyponatremia; E66.9 Obesity, unspecified; Z68.28 Body mass index [BMI] 28.0-28.9, adult; Z71.3 Dietary counseling and surveillance; Z95.5 Presence of coronary angioplasty implant and graft
CPT/HCPCS: 12001; 36415; 70450; 71045; 72125; 80048; 80061; 80076; 80320; 82607; 82728; 82746; 82962; 83540; 83550; 83735; 84100; 84484; 85014; 85018; 85025; 93005; 96360; 96361; 97161; 97165; 97802; 99218; 99285; J7030; G0378; G0480

== ENCOUNTER → 2019-04-29 13:35 | Outpatient (CLI) | payer MEDICARE, BC, SELFPAY ==
[2019-04-08 11:31] VITALS: BMI 28.2
--- NOTE | 2019-04-29 13:37 | ECHOD_ITS ---
Reason For Study: CAD Procedure This was a 2D Doppler, Color Flow transthoracic echocardiogram. The exam was of adequate technical quality. Exam performed in department. Left Ventricle Normal LV size. Mild segmental systolic dysfunction (see wall motion). The estimated ejection fraction is 45 %. Diastolic function is indeterminate. Lateral-Basal: Hypokinetic. Posterior-Basal: Severely hypokinetic. Infero-Basal: Hypokinetic. Basal inferoseptal: Hypokinetic. Mid-Lateral : Hypokinetic. Mid-Posterior: Akinetic. Mid-Inferior: Hypokinetic. Mid-inferoseptal : Hypokinetic. Inferior Tebbetts : Hypokinetic. Lateral [place] : Hypokinetic. Right Ventricle Normal RV size. Normal systolic function. Atria The left atrium is mildly enlarged. Normal right atrium. No doppler evidence for ASD. Mitral Valve There is no mitral annular calcification. Normal mitral valve. The mitral papillary muscle appears thickened and/or calcified. Mild (1+) mitral valve insufficiency. Tricuspid Valve Normal tricuspid valve. Trivial tricuspid valve insufficiency. Right ventricular systolic pressure estimated to be 22 mmHg. Aortic Valve Trisinus/trileaflet aortic valve. Mild focal aortic valve thickening. Mild focal aortic valve calcification. Pulmonic Valve The pulmonic valve is not well visualized. Great Vessels Normal sized aortic root. Calcified aortic root. Pericardium/Pleural No pericardial effusion. MMode/2D Measurements & Calculations LVIDd: 5.4 cm IVSd: 0.96 cm Ao root diam: 3.4 cm LVIDs: 4.2 cm LVPWd: 0.65 cm RVDd: 3.9 cm FS: 22.2 % LAV(MOD-bp): 71.2 ml LA A4 area: 18.3 cm2 LA dimension(2D): 4.5 cm LAV(MOD-bp) Indexed: 33.9 ml/m2 LAV(MOD-sp2): 92.9 ml LAV(MOD-sp4): 47.9 ml RA A4 area: 15.0 cm2 Time Measurements MV dec time: 0.31 sec Doppler Measurements & Calculations MV E max anson: 57.7 cm/sec Lat A' anson: 9.6 cm/sec Med Peak E' Anson: 5.9 cm/sec MV A max anson: 89.7 cm/sec E/E' med: 9.7 MV E/A: 0.64 Ao V2 max: 151.3 cm/sec LV V1 max: 110.9 cm/sec PA V2 max: 93.2 cm/sec Ao max P.2 mmHg LV V1 max P.9 mmHg TR max anson: 220.4 cm/sec TR max P.4 mmHg Interpretation Summary Mild segmental systolic dysfunction (see wall motion). The estimated ejection fraction is 45 %. The left atrium is mildly enlarged. The mitral papillary muscle appears thickened and/or calcified. Mild (1+) mitral valve insufficiency. Trivial tricuspid valve insufficiency. Mild focal aortic valve thickening. Mild focal aortic valve calcification. Calcified aortic root. Right ventricular systolic pressure estimated to be 22 mmHg. Diastolic function is indeterminate. Ordering Physician: Bolivar Nails Referring Physician: IRA RANGEL Performed By: Sharon Salinas, PRIYA, RVT
== END ==
PROVIDERS: Family Provider Family Medicine; PCP Family Medicine; Referring Provider Internal Medicine Cardiovascular Disease; Visit Provider Internal Medicine Cardiovascular Disease
DX: I25.10 Atherosclerotic heart disease of native coronary artery without angina pectoris (principal); I25.2 Old myocardial infarction; I10 Essential (primary) hypertension; E78.2 Mixed hyperlipidemia; R57.0 Cardiogenic shock; Z95.5 Presence of coronary angioplasty implant and graft
CPT/HCPCS: 93306

== ENCOUNTER → 2019-07-20 06:16 | Outpatient (CLI) | payer MEDICARE, BC, SELFPAY ==
[2019-07-08 12:57] VITALS: BMI 29.1
--- NOTE | 2019-07-20 18:46 | STRESSREP ---
Stress Test Report Date: 07-20-2019 Procedure: Exercise tolerance test/imaging study Indications: CAD, PCI Consent: Per the patient Procedure: The patient exercised on a Lit protocol for 9 minutes completing Stage III achieving a peak heart rate of 155 bpm (100 % predicted maximal heart rate) with a peak blood pressure 200/78 mmHg and a peak MET capacity of 10 METs. The baseline ECG demonstrated normal sinus rhythm; nonspecific T wave abnormality. The peak exercise ECG demonstrated kfie-jx-piwx nonspecific ST/T wave variability with resolution towards baseline beginning by approximately 1 minute in recovery. There were no cardiac dysrhythmias pretest, during exercise, or recovery. The functional capacity was considered good. There was no complaint of chest discomfort during exercise or recovery. The examination was discontinued secondary to apnea. Impression: 1. Technically adequate (percent predicted maximal heart rate greater than 85%) exercise tolerance test 2. Peak exercise ECG with [id number] nonspecific ST/T wave variability with resolution towards baseline beginning by approximately 1 minute in recovery 3. There were no cardiac dysrhythmias pretest, during exercise, or recovery 4. Nuclear images pending Myocardial perfusion imaging study: Technique: The patient was injected with 11.9 mCi of technetium 99m Cardiolite and subsequently rest SPECT Cardiolite nuclear imaging was obtained in the horizontal long, vertical long, and short axis views. The patient exercised on a Lit protocol for 9 minutes completing Stage III achieving a peak heart rate of 155 bpm (100 % predicted maximal heart rate) with a peak blood pressure 200/78 mmHg and a peak MET capacity of 10 METs. The patient was injected with 33.8 mCi of technetium 99m Cardiolite and subsequently stress SPECT Cardiolite nuclear imaging was obtained in the horizontal long, vertical long, and short axis views. A gated Cardiolite study at peak stress was not obtained. Interpretation: Rest and stress SPECT Cardiolite nuclear imaging status post realignment, normalization, and attenuation correction, demonstrates diminished absence of myocardial perfusion/tracer uptake in portions of the basal to distal inferior lateral segments which appear to be somewhat more prominent in the distal inferolateral segments following stress. A gated Cardiolite study was not performed. Impression: 1. Rest and stress SPECT Cardiolite nuclear imaging demonstrate myocardial perfusion changes appearing compatible with an area of previous myocardial injury/infarction involving portions of the basal to distal inferolateral segments with post stress myocardial perfusion changes appearing compatible with an area of pablo-infarct related myocardial ischemia in the distal inferolateral segments. 2. The gated Cardiolite study was not performed. This note was generated with [employer] software. It may contain incorrect words, spelling, and punctuation that were not noted in checking the note before signing.
== END ==
PROVIDERS: PCP Family Medicine; Referring Provider Nurse Practitioner Family; Visit Provider Nurse Practitioner Family
DX: I25.10 Atherosclerotic heart disease of native coronary artery without angina pectoris (principal); R06.09 Other forms of dyspnea; Z95.5 Presence of coronary angioplasty implant and graft
CPT/HCPCS: 78452; 93017; A9500; A4216

== ENCOUNTER 2019-07-28 07:00 | Day surgery (SDC) | payer MEDICARE, BC, SELFPAY ==
[2019-07-08 12:57] VITALS: BMI 29.1
--- NOTE | 2019-07-22 13:05 | RAD_ITS ---
STUDY: X-RAY CHEST REASON FOR EXAM: Male, 68 years old. Pre heart cath next week -- abnormal stress test, SOB TECHNIQUE: PA and lateral views of the chest. COMPARISON: January 27, 2019 FINDINGS: The lungs remain hyperinflated. There is no new focal consolidation. Normal size heart. Normal mediastinum and bailey. Normal visualized pulmonary arteries. Normal visualized aortic arch and descending thoracic aorta. There are diffuse degenerative changes of the visualized thoracic spine. Normal visualized ribs, clavicles, and shoulders. There is no demonstrated abnormality of the visualized soft tissue structures of the upper abdomen. RAD/Chest PA and Lateral IMPRESSION: No acute cardiopulmonary process. Electronically Signed: Zaynab Soto MD at 17:23 EST Tel , Service support ,
[2019-07-22 13:41] LABS: Hematocrit 37.9 % (40-54); Hemoglobin 12.9 g/dL (13.0-16.5); Mean Corpuscular Hgb 32.2 pg (27.0-32.0); Mean Corpuscular Volume 94.5 fL (80-94); Platelet Count 223 K/mm3 (150-450); RBC Distribution Width CV 13.9 % (11.6-14.6); RBC Distribution Width SD 48.3 fl (35.1-43.9); Red Blood Count 4.01 M/mm3 (4.6-6.2); White Blood Count 5.1 K/mm3 (4.4-11.0)
[2019-07-22 13:47] LABS: Prothrombin Time (Protime)PT. 12.5 SECONDS (11.7-14.9)
[2019-07-22 13:48] LABS: Partial Thromboplast Time 28.8 Seconds (24.1-36.2)
[2019-07-22 14:49] LABS: Anion Gap 5 (5-15); BUN 19 mg/dL (7-18); BUN/Creat Ratio 20.3 RATIO (10-20); Calcium,Total 9.5 mg/dL (8.5-10.1); Chloride 103 mmol/L (98-107); Creatinine, Serum 0.94 mg/dL (0.70-1.30); EST Glomerular Filtration Rate 85 mL/min (>60); Est Glom Filt Rate - Afr Amer 103 mL/min (>60); Glucose 205 mg/dL (74-106); Potassium 4.1 mmol/L (3.5-5.1); Sodium Level 137 mmol/L (136-145)
[2019-07-27 08:39] VITALS: BMI 29.1
[2019-07-28] VITALS (23 sets, daily range): BP systolic 108–179; BP diastolic 51–94; PULSE 58–98; RESP 12–19; TEMP 36.3–36.6; O2SAT 95–100; BMI 28.5; BMI 29.1
--- NOTE | 2019-07-28 07:44 | PCM.HP.BLA ---
Problem List (1) SOB (shortness of breath) Status: Acute (2) Abnormal stress test Status: Acute (3) CAD (coronary artery disease) Status: Chronic Qualifiers: Coronary Disease-Associated Artery/Lesion type: [place] artery [place] vs. transplanted heart: [place] heart (4) Presence of stent in coronary artery Status: Chronic Comment: PCI CX 1999; PCI/MICHELE of the patent pre existing stent and 95% stenosis in the LCX and prox OM1 08/09/13; PCI/MICHELE to mid RCA 08/25/13 (5) Mixed hyperlipidemia Status: Chronic (6) Essential hypertension Status: Chronic (7) Diabetes mellitus, type II Status: Chronic Qualifiers: History and Physical Date of Admission: 07/28/19 [facility] [address] [place] [address] OFFICE VISIT Date of Service: 07/08/19 MR#: [id number] Acct: [id number] Name: PAM JONES Rep #: [id number] : 1950 Provider: JAMAICA Alexis Age/Sex: 68/M Location: [facility] Status: Signed with Addenda ADDENDUM by JAMAICA Alexis on 07/12/19 at 0905 Addendum entered and electronically signed by JAMAICA Palacios 07/12/19 09:05: After noting that his hemoglobin was much improved compared to previous and patient continues to have shortness of breath in conjunction with his history of coronary artery disease and unexplainable symptoms, he will proceed with nuclear treadmill stress test for further evaluation. Based on results, further recommendation will be made. Assessment & Plan 1. Atherosclerosis of [place] coronary artery of [place] heart without angina pectoris I25.10 Plan - JAMAICA Palacios Patient denies any chest pain, arm pain, jaw pain, neck pain, shortness of breath, or fatigue suggestive of angina at this time. We will continue to monitor. We will not make any medication regimen changes and will continue risk factor modification. Patient continues with intermittent episodes of shortness of breath. The exact etiology is unclear. He was asked to investigate further in regards to his hemoglobin. His hemoglobin on 01/28/2019 was noted be 8.2. After office appointment, his office note from primary care physician was reviewed and it appears that his anemia was thought to be related to a head injury and significant blood loss. His hemoglobin on 06/30/2019 was noted 11.9. Of note during his appointment with my care physician on 03/25/2019 he denied shortness of breath or dyspnea on exertion. 2. Presence of stent in coronary artery Z95.5 PCI CX 1999; PCI/MICHELE of the patent pre existing stent and 95% stenosis in the LCX and prox OM1 08/09/13; PCI/MICHELE to mid RCA 08/25/13 Plan - JAMAICA Palacios He continue risk factor lifestyle modification. 3. Essential (primary) hypertension I10 Plan - JAMAICA Palacios Patient's blood pressure is well-controlled. We will continue to monitor. We will not make any medication regimen changes. 4. Mixed hyperlipidemia E78.2 Plan - JAMAICA Palacios Lipid panel from 01/28/2019 showed cholesterol: 113, HDL: 40, LDL: 55, and triglycerides: 91. He will continue current high-dose statin medication. Plan Detail Additional Comments - JAMAICA Palacios Thank you for allowing us to participate in the patients plan of care, if you have any questions please do not hesitate to call. This note was generated using a voice recognition system and there may be incorrect words, spelling or punctuation that were not noted when reviewing the office note prior to saving. Follow Up 6 Months (PFM) 07/12/19 0905 <Electronically signed by Aroldo BERUMEN> Date Aroldo Alexis cc: Brandon Choi MD ~* Signed HPI HPI History of Present Illness Details: This is a 68-year-old white male who presents for outpatient cardiovascular consultation based upon concerns of a history of CAD, MS (inferior posterior), cardiogenic shock, PCI procedures, superimposed on hyperlipidemia and hypertension. He has previously been followed by the [facility] cardiology group with his last outpatient visit being on 03-10-18. At that time he was continuing medical management. Patient underwent echocardiogram after last office visit. There was concerns for anemia, which was asked to be investigated further. He is currently utilizing the treadmill three days a week for 30 minutes a time. He denies associated chest pain, but does acknowledge SOB by the end of the 30 minutes. He states SOB when walking up hill. He denies chest, arm, jaw, or neck discomfort. His exercise tolerance is stable. He denies symptoms of palpitations, near syncope, or syncopal episodes. He states lightheadedness and dizziness has improves. He denies edema or claudication issues. He denies orthopnea, PND, fever, chills, blood in urine, blood in stool, myalgia, or unexplainable fatigue. He states poor sleep d/t previous rotator cuff injury. He state taking Naprosyn twice a day at 330mg. Intake Vital Signs 07/08/19 Height 6 ft 07/08/19 Weight: 215 lb 07/08/19 BP 165/82 H 07/08/19 Blood Pressure Location Lt brachial 07/08/19 Position Sitting 07/08/19 Respiration 18 07/08/19 Pulse 70 07/08/19 Pulse Source Monitor 07/08/19 Pulse Oximetry (%) 96 Intake Visit Reasons: 3 m fu Soot Blower Required: No Accompanied by: None Is patient in pain?: No Allergies celecoxib [From Celebrex] Allergy (Verified 07/08/19 13:03) Other Medications Atorvastatin Calcium [Lipitor] 80 mg PO QHS 01/27/19 [History Confirmed 07/08/19] Carvedilol 6.25 mg PO BID 01/27/19 [History Confirmed 07/08/19] Lisinopril 40 mg PO DAILY 01/27/19 [History Confirmed 07/08/19] Metformin HCl 1,000 mg PO BID 01/27/19 [History Confirmed 07/08/19] aspirin 81 mg tablet,delayed release 81 mg PO DAILY 04/06/19 [History Confirmed 07/08/19] nitroglycerin 0.4 mg sublingual tablet 0.4 mg SUBLINGUAL Q5-15M PRN 04/06/19 [History Confirmed 07/08/19] vit B complex 100 combo no.2 100 mg tablet,extended release 1 tab PO DAILY tab 04/06/19 [History Confirmed 07/08/19] amlodipine 5 mg tablet 5 mg PO DAILY #90 tab 04/08/19 [Rx Confirmed 07/08/19] PFSH Social History (Updated 07/09/19 @ 08:09 by JAMAICA Palacios) Smoking Status: Former smoker alcohol intake: never substance use type: does not use caffeine: Yes Type: coffee Number of servings: 4 ROS Const Const: Negative for fatigue, weakness, body ache, fever(s) or chills ENT ENT: Positive for dizziness Cardio Chest Pain: No Palpitations: No Edema: None Muscle aches with walking: None Resp Respiratory: Positive for SOB with activity; negative for SOB at rest, SOB orthopnea\SOB lying down or paroxysmal nocturnal dyspnea GI GI: Negative nausea, vomiting blood/hematemesis, bright, red blood in stools or black,tarry stools : Negative for hematuria or frequent nighttime urination/ nocturia Musc Musc: Negative for muscle aches/ myalgia Skin Skin: Negative non-healing lesions or rash Neuro Neuro: Positive for dizziness and lightheadedness; negative for near syncope, syncope, orthostatic symptoms or weakness Endo Endo: Negative for fatigue Allergy Allergy/Immunology: Negative for rash Cardiology Exam Const Appearance: cooperative, healthy appearing, comfortable and no acute distress Nutritional Appearance: average body habitus and well nourished Orientation: alert, awake and oriented x3 Head Head: normal to inspection Ears: hearing grossly normal bilaterally Nose: external nose normal Face and Sinus: face symmetric Mouth: oral mucosae normal Eyes General: appearance normal, both eyes and all related structures Eyelids: eyelids normal EOM: EOM intact bilaterally Neck Neck: normal visual inspection and no JVD Carotids: normal carotid upstroke Chest Chest inspection: normal inspection of the chest, symmetric chest movement and normal respiratory effort; negative cough Auscultation: Bilateral: Clear to Auscultation Cardio Palpation: normal PMI Rate: regular rate Rhythm: regular rhythm Heart sounds: S1 normal and S2 normal; negative rub, gallop or murmur GI GI: normal to inspection Neuro General: alert, awake, oriented x3 and CN's II-XI intact bilaterally Skin Skin: no rashes or lesions noted Extremities Pulses: Normal: Right Posterior Tibial Pulse, Left Posterior Tibial Pulse, Right Radial Pulse, Left Radial Pulse Lower Extremity Edema: None: Bilateral Psych Psychological: normal affect Assessment & Plan 1. Atherosclerosis of [place] coronary artery of [place] heart without angina pectoris I25.10 Plan Patient denies any chest pain, arm pain, jaw pain, neck pain, shortness of breath, or fatigue suggestive of angina at this time. We will continue to monitor. We will not make any medication regimen changes and will continue risk factor modification. Patient continues with intermittent episodes of shortness of breath. The exact etiology is unclear. He was asked to investigate further in regards to his hemoglobin. His hemoglobin on 01/28/2019 was noted be 8.2. After office appointment, his office note from primary care physician was reviewed and it appears that his anemia was thought to be related to a head injury and significant blood loss. His hemoglobin on 06/30/2019 was noted 11.9. Of note during his appointment with my care physician on 03/25/2019 he denied shortness of breath or dyspnea on exertion. 2. Presence of stent in coronary artery Z95.5 PCI CX 1999; PCI/MICHELE of the patent pre existing stent and 95% stenosis in the LCX and prox OM1 08/09/13; PCI/MICHELE to mid RCA 08/25/13 Plan He continue risk factor lifestyle modification. 3. Essential (primary) hypertension I10 Plan Patient's blood pressure is well-controlled. We will continue to monitor. We will not make any medication regimen changes. 4. Mixed hyperlipidemia E78.2 Plan Lipid panel from 01/28/2019 showed cholesterol: 113, HDL: 40, LDL: 55, and triglycerides: 91. He will continue current high-dose statin medication. Plan Detail Additional Comments Thank you for allowing us to participate in the patients plan of care, if you have any questions please do not hesitate to call. This note was generated using a voice recognition system and there may be incorrect words, spelling or punctuation that were not noted when reviewing the office note prior to saving. Follow Up 6 Months (PFM) Coding Level of Care Code Off vis,est,level 3 Diagnoses Atherosclerosis of [place] coronary artery of [place] heart without angina pectoris I25.10 ??[place] vs. transplanted heart: [place] heart Presence of stent in coronary artery Z95.5 Essential (primary) hypertension I10 Mixed hyperlipidemia E78.2 Coding Level of Care Code Off vis,est,level 3 Diagnoses Atherosclerosis of [place] coronary artery of [place] heart without angina pectoris I25.10 ??[place] vs. transplanted heart: [place] heart Presence of stent in coronary artery Z95.5 Essential (primary) hypertension I10 Mixed hyperlipidemia E78.2 Supplemental Info Supplemental Information Echocardiogram from 04/29/2019: Interpretation Summary Mild segmental systolic dysfunction (see wall motion). The estimated ejection fraction is 45 %. The left atrium is mildly enlarged. The mitral papillary muscle appears thickened and/or calcified. Mild (1+) mitral valve insufficiency. Trivial tricuspid valve insufficiency. Mild focal aortic valve thickening. Mild focal aortic valve calcification. Calcified aortic root. Right ventricular systolic pressure estimated to be 22 mmHg. Diastolic function is indeterminate. He has undergone evaluation in the past with cardiac catheterization related procedures. Based upon medical records available for review it appeared he had a procedure performed on 07-06-97. At that time based upon a report from the [facility] system the left main coronary artery is normal, the LAD had no significant lesions, the LCx had no significant lesions, the RCA had no significant lesions, and the left ventricle was thought to be normal with respect to systolic function. It appears that he had cardiac catheterization performed at [facility] on 08-09-13. At that time the left ventricle was noted to have an LVEF of 40 to 45% with inferior lateral wall motion abnormalities, the left main coronary artery was normal, the LAD had diffuse stenosis, the LCx system had an OM with a proximal 90% stenosis, the RCA system had a mid 80% stenosis, and he subsequently underwent PTCA/stenting of the LCx system/OM system. It appears that he returned on 08-25-2013 and underwent PTCA/stenting of the RCA system. The patient underwent a [facility] echocardiographic procedure on 03-21-2006. This was a stress echocardiogram. According to the conclusion there was a comment the resting LV systolic function is mildly depressed with multiple segmental wall motion abnormalities with nonstenotic valves and mild MR. The stress echo conclusions were negative for ischemia at 97% maximal predicted heart rate. Labs LDL Cholesterol 55 mg/dL (0-130) 01/28/19 HDL Cholesterol 40 mg/dL (40-) 01/28/19 Triglycerides 91 mg/dL (-199) 01/28/19 VLDL Cholesterol 18 mg/dL (5-40) 01/28/19 Diagnostics Electrocardiogram 04/08/19 Echocardiogram 04/29/19 Chest X-Ray 01/27/19 07/09/19 0809 <Electronically signed by Aroldo BERUMEN> Date Aroldo Kaley Reuben BERUMEN Cosigner Signature: Date (if applicable) CC: Brandon Choi MD ~ I have examined the patient the following changes are noted: The patient underwent further evaluation and care with an exercise tolerance test. The results are as noted. Stress Test Report Date: 07-20-2019 Procedure: Exercise tolerance test/imaging study Indications: CAD, PCI Consent: Per the patient Procedure: The patient exercised on a Lit protocol for 9 minutes completing Stage III achieving a peak heart rate of 155 bpm (100 % predicted maximal heart rate) with a peak blood pressure 200/78 mmHg and a peak MET capacity of 10 METs. The baseline ECG demonstrated normal sinus rhythm; nonspecific T wave abnormality. The peak exercise ECG demonstrated [id number] nonspecific ST/T wave variability with resolution towards baseline beginning by approximately 1 minute in recovery. There were no cardiac dysrhythmias pretest, during exercise, or recovery. The functional capacity was considered good. There was no complaint of chest discomfort during exercise or recovery. The examination was discontinued secondary to apnea. Impression: 1. Technically adequate (percent predicted maximal heart rate greater than 85%) exercise tolerance test 2. Peak exercise ECG with seel-fk-baij nonspecific ST/T wave variability with resolution towards baseline beginning by approximately 1 minute in recovery 3. There were no cardiac dysrhythmias pretest, during exercise, or recovery 4. Nuclear images pending Myocardial perfusion imaging study: Technique: The patient was injected with 11.9 mCi of technetium 99m Cardiolite and subsequently rest SPECT Cardiolite nuclear imaging was obtained in the horizontal long, vertical long, and short axis views. The patient exercised on a Lit protocol for 9 minutes completing Stage III achieving a peak heart rate of 155 bpm (100 % predicted maximal heart rate) with a peak blood pressure 200/78 mmHg and a peak MET capacity of 10 METs. The patient was injected with 33.8 mCi of technetium 99m Cardiolite and subsequently stress SPECT Cardiolite nuclear imaging was obtained in the horizontal long, vertical long, and short axis views. A gated Cardiolite study at peak stress was not obtained. Interpretation: Rest and stress SPECT Cardiolite nuclear imaging status post realignment, normalization, and attenuation correction, demonstrates diminished absence of myocardial perfusion/tracer uptake in portions of the basal to distal inferior lateral segments which appear to be somewhat more prominent in the distal inferolateral segments following stress. A gated Cardiolite study was not performed. Impression: 1. Rest and stress SPECT Cardiolite nuclear imaging demonstrate myocardial perfusion changes appearing compatible with an area of previous myocardial injury/infarction involving portions of the basal to distal inferolateral segments with post stress myocardial perfusion changes appearing compatible with an area of pablo-infarct related myocardial ischemia in the distal inferolateral segments. 2. The gated Cardiolite study was not performed. Based upon the aforementioned findings the patient has been recommended to proceed with further evaluation with diagnostic cardiac catheterization. The procedure and risks were discussed with the patient. He was agreeable to this approach. This note was generated using a voice recognition system and there may be incorrect words, spelling or punctuation that were not noted when reviewing the office note prior to saving.
--- NOTE | 2019-07-28 09:49 | CL.D_ITS ---
Patient Name: PAM JONES Study Date: 07/28/2019 Performing: Bolivar Nails MD Ht: 72.04 inches 183 cm : 1950 Wt: 216.05 lbs 98 kg Age: 68 Gender: male BSA: 2.2 PROCEDURE(S) PERFORMED [id number]/LV [id number] W OR WO PTCA, SINGLE CORONARY ARTERY CLINICAL PROFILE AND INDICATIONS Indications: Suspected CAD Heart Failure: None Stress/Imaging Date: 07/20/2019Stress Test with SPECT MPI: Positive Angina Classification Anginal Classification w/in 2 Weeks: CCS III CAD Presentations: Stable angina. (CHRISTINA: angina pectoris equivalent) CONCLUSIONS Elevated Left Ventricular End Diastolic Pressure Segmented LV systolic dysfunction- Mild LVEF: by LV gram 45 % [place] Multivessel CAD RECOMMENDATIONS Risk factor modification Medical therapy Referred for immediate PCI DESCRIPTION OF PROCEDURE The patient arrived to the procedure lab. The risks and benefits of the procedure as well as a full d escription of our services here and current unavailability of surgical backup were fully explained to the patient and/or their significant other prior to the catheterization. The Timeout was completed, verifying the correct patient and procedure. The patient's procedural site was prepped and draped in the usual fashion. Local anesthetic was given subcutaneously to right groin region with Lidocaine 2%. Using a modified Seldinger technique, arterial access was obtained via the right femoral artery, a 4 Fr sheath was inserted Left Coronary Artery selective angiography was performed in multiple views us ing a 4 Fr. JL5 catheter. Right Coronary Artery selective angiography was then performed in multiple views using a 4 Fr. 3DRC catheter. Left Ventriculography was performed in CAAL projection using a 4 Fr . Pigtail catheter. LV to AO pullback pressures were then recorded.Contrast was injected through the sheath and the Right Iliac and Femoral artery were assessed for possible closure device.T he arterial sheath was exchanged to a standard sheath. The arterial sheath was pulled and a Mynx clos ure device was deployed for hemostasis CORONARY ANGIOGRAPHY DOMINANCE: Right Dominant LEFT HEART ASSESSMENT Left Ventricular Ejection Fraction: by LV Gram 45 % Inferior Mid Hypokinesis. Inferior Apical Hypokinesis Elevated Left Ventricular End Diastolic Pressure LVEDP: 24 mmHg LEFT MAIN: Moderate calcification, mid: eccentric: 25 % Stenosis LEFT ANTERIOR DESCENDING ARTERY: PROX LAD: Mild calcification, eccentric: 10 - 25 % Stenosis MID LAD: Mild luminal irregularities CIRCUMFLEX ARTERY: PROX CIRC: eccentric: 10 - 25 % Stenosis MID CIRC: Previously placed stent is patent DISTAL CIRC: eccentric: 10 - 25 % Stenosis RIGHT CORONARY ARTERY: PROX RCA: eccentic: 50 % Stenosis MID RCA: Previously placed stent is patent, 25 % Stenosis DISTAL RCA: eccentric: 75 % Stenosis AORTIC ROOT: Angiographically normal COMPLICATIONS No Complications PROCEDURE MEDICATIONS Versed 1 mg IV Versed 1 mg IV Oxygen: 2 L/min via nasal cannula Heparin 6000 unit(s) IV 07/28/2019 09:13:50 Nitro 200 mcg IC 07/28/2019 09:15:04 Nitro 200 mcg IC 07/28/2019 09:15:04 IV Bolus: .9 NaCl 500ml total 07/28/2019 09:14:49 SUMMARY OF HEMODYNAMIC DATA Time AIR REST ECG 07:22:20 AO 159/76 (107) SA 08:44:11 LV 165/-7, 25 08:51:44 LV 167/-7, 24 08:51:51 LV 168/-5, 28 08:52:42 LV 169/-6, 27 08:52:48 LVp 164/-7, 26 08:53:00 AOp 164/77 (114) 08:53:06 Signed By Bolivar Nails MD On 07/28/2019 9:48:18 AM Bolivar Nails MD
[2019-07-28 09:51] LABS: ACT Activated Clotting Time 164 sec (74-137)
--- NOTE | 2019-07-28 10:09 | EKG12_ITS ---
Test Reason : POST PCI Blood Pressure : / mmHG Vent. Rate : 057 BPM Atrial Rate : 057 BPM P-R Int : 118 ms QRS Dur : 078 ms QT Int : 444 ms P-R-T Axes : 046 024 -24 degrees QTc Int : 432 ms Sinus bradycardia with Premature atrial complexes Otherwise normal ECG When compared with ECG of 28-JAN-2019 05:42, Premature atrial complexes are now Present Confirmed by RADHA HAMMOND ([id number]), photographic editor DREW TRUJILLO ([id number]) on 08/09/2019 11:42:33 AM Referred By: Bolivar Nails Confirmed By:RADHA HAMMOND
--- NOTE | 2019-07-28 10:16 | CL.I_ITS ---
Patient Name: PAM JONES Study Date: 07/28/2019 Performing: Benito Tomlinson MD Ht: 72.05 inches 183 cm : 1950 Wt: 216.05 lbs 98 kg Age: 68 Gender: male BSA: 2.2 PROCEDURE(S) PERFORMED TI90-KMX W OR WO PTCA, SINGLE CORONARY ARTERY CLINICAL PROFILE AND CO-MORBIDITIES Indications: Suspected CAD, Stable Known CAD Heart Failure: NYHA Class: 1, Newly Diagnosed: No, Heart Failure Type: Systolic Stress/Imaging Date: 07/20/2019 Stress Test with SPECT MPI: Positive Angina Classification Anginal Classification w/in 2 Weeks: CCS III CAD Presentations: Stable angina. (CHRISTINA: angina pectoris equivalent) Comorbidities/Risk Factors: Hypertension Dyslipidemia Diabetes Mellitus: Diabetes Therapy: Oral Prior PCI CONCLUSIONS Successful PTCA/MICHELE of distal RCA with a 3.5 x 16 Promus Synergy, 75%-->0%, no dissection. Successful PTCA/MICHELE proximal RCA with a 3.5 x 28 Promus Synergy, post dilated with a 4.0 x 8 NC, foll owed at ostium with a 4.5 x 8 NC balloon; 75%-->0%, no dissection. RECOMMENDATIONS Highly recommend quitting all tobacco products Follow up with primary general purchasing agent Risk factor modification ASA Indefinitley Plavix for at least 12 months Routine post interventional care Refer for Outpatient Cardiac Rehab Manual sheath removal per protocol Follow up with Dr. Nails Successful Mynx Control closure of RFA. DESCRIPTION OF PROCEDURE The patient arrived to the procedure lab. The risks and benefits of the procedure as well as a full d escription of our services here and current unavailability of surgical backup were fully explained to the patient and/or their significant other prior to the catheterization. The Timeout was completed, verifying the correct patient and procedure. The patient's procedural site was prepped and draped in the usual fashion. Local anesthetic was given subcutaneously to right groin region with Lidocaine 2% Using a modified Seldinger technique,arterial access was obtained via the right femoral artery, a 4Fr sheath was inserted Left Coronary Artery selective angiography was performed in multiple views using a 4 Fr. JL5 catheter. Right Coronary Artery selective angiography was then performed in multiple vie ws using a 4 Fr. 3DRC catheter. Left Ventriculography was performed in CAAL projection using a 4 Fr. P igtail catheter. LV to AO pullback pressures were then recorded.The images were reviewed and options discussed. A decision was then made to proceed with an Intervention, IVUS or other adjunc t procedure. Arterial sheath was exchanged for a 6 Fr 45cm Sheath. HSII Guide catheter was inserted and engage d into the RCA. [employer] [place] Guide wire was advanced to the RCA. Emerge 2.0 x 12 Balloon catheter wa s inserted. Balloon catheter was advanced across lesion in the right coronary, distal. PTCA balloon i nflated at 6 atms for 8 secs. Synergy 3.5 x 16 Drug Eluting stent was inserted. Drug Eluting stent wa s advanced across the lesion in the right coronary, distal. Synergy 3.5 x 28 Drug Eluting stent was i nserted. Drug Eluting stent was advanced across the lesion in the right coronary, proximal. NC Emerge 4.0 x 8 Balloon catheter was inserted. Balloon catheter was advanced across lesion in the right carisa nary, proximal. NC Emerge 4.5 x 8 Balloon catheter was inserted. Balloon catheter was advanced across lesion in the right coronary, proximal. Contrast was injected through the sheath and the Right Iliac and Femoral artery were assessed for possible closure device. The arterial sheath was exchanged to a standard sheath. The arterial sheath was pulled and a Mynx closure device was deployed for hemostasis INTERVENTION INFORMATION LESION SITE: RCA (Distal) Lesion Complexity: Non-High/Non-C, lesion at bifurcation: No, thrombus present: No, lesion length: 16 mm, culprit lesion: Yes Pre Stenosis: 75 % Pre intervention RASTA flow: 3 PROCEDURE: Drug Eluting Stent with pre dilatation. Post Stenosis: 0 % Post intervention RASTA flow: 3 Lesion Devices: Avila .014 [employer] [place] Straight 190cm Medtronic 6 Fr HSII 100cm Guide Catheter Cook 6F 45cm Sheath Chet Sci EMERGE MR 2.00x12 BALLOON Chet Sci Synergy MR MICHELE 3.50x16 LESION SITE: RCA (Proximal) Lesion Complexity: High/C, lesion at bifurcation: No, thrombus present: No, lesion length: 28 mm, cul prit lesion: No Pre Stenosis: 75 % Pre intervention RASTA flow: 3 PROCEDURE: Drug Eluting Stent with pre and post dilatation Post Stenosis: 0 % Post intervention RASTA flow: 3 Lesion Devices: Avila .014 [place] Straight 190cm Medtronic 6 Fr HSII 100cm Guide Catheter Cook 6F 45cm Sheath Chet Sci Synergy MR MICHELE 3.50x28 Chet Sci NC EMERGE MR 4.00x08 BALLOON COMPLICATIONS No Complications PROCEDURE MEDICATIONS Versed 1 mg IV Versed 1 mg IV Oxygen: 2 L/min via nasal cannula Heparin 6000 unit(s) IV 07/28/2019 09:13:50 Nitro 200 mcg IC 07/28/2019 09:15:04 Nitro 200 mcg IC 07/28/2019 09:15:04 IV Bolus: .9 NaCl 500ml total 07/28/2019 09:14:49 SUMMARY OF HEMODYNAMIC DATA Time AIR REST ECG 07:22:20 AO 159/76 (107) SA 08:44:11 LV 165/-7, 25 08:51:44 LV 167/-7, 24 08:51:51 LV 168/-5, 28 08:52:42 LV 169/-6, 27 08:52:48 LVp 164/-7, 26 08:53:00 AOp 164/77 (114) 08:53:06 Signed By Benito Tomlinson MD On 07/28/2019 10:15:05 Benito Tomlinson MD
[2019-07-28] MEDS: 0.9% Normal Saline 1,000 ML 150 ML IV (10:49)
[2019-07-28 11:10] LABS: Bedside Glucose 136 mg/dL (70-110)
--- NOTE | 2019-07-28 12:49 | CHAPLAIN ---
Type of Pastoral Visit _x__ Initial Visit ___ Follow-up Visit ___ On-call Visit ___ General Patient Visit ___ Spiritual Assessment ___ Family Conference ___ Bereavement ___ Rapid Response ___ Code Blue ___ Other (describe below) Pastoral Care Referral From _x__ Patient ___ Family ___ Nurse ___ Physician ___ Family Medicine Physician ___ Fleet Administrative Assistant ___ Other (describe below) Sacrament/Intervention _x__ Active listening ___ Anointing ___ Jain ___ Bereavement ___ Communion _x__ Kristin exploration ___ _x__ Life review _x__ Prayer ___ Reconciliation ___ Sacrament of Sick _x__ Supportive presence ___ Wedding ___ Other (describe below) Pastoral Comments
--- NOTE | 2019-07-28 13:13 | CRPHASE1 ---
Patient Communication PHII Cardiac Rehab Discussed with Patient:: Yes Guide to Cardiac Rehab Given to Patient:: Yes Cardiac Rehab Facility Choice List Given to Patient:: Yes - Pt chooses [facility] Choice Program [facility] CR PHII:: Communication Given to CR, Refer to [facility] Manager Solar:: Benito Tomlinson Phase II Cardiac Rehab:: Yes Sessions:: 36 sessions - 3 days/wk, 12 weeks Risk Factors/Lifestyle Hx Hypertension: Yes Hx Diabetes Mellitus Type 2: Yes Hx Dyslipidemia: Yes Hx Obesity: Yes Height: 6 ft Weight:: 97.522 kg BMI: 29.1 Family History: Family History (Last Reviewed 04/08/19 @ 11:35 by Arely Encinas) Mother Diabetes Alzheimers disease Father CVA (cerebral vascular accident) Past Cardiac Illness: Previous PCI w/Stent Phase I Education Given On:: [place], Nutrition, Antiplatelet medication, CHF, Smoking cessation, Diabetes - Type I, Diabetes - Type II Issues Affecting Care:: None Knowledge of Condition:: Yes Hospital Course Cardiac Cath Date:: 07/28/19 Medical/Surgical History Diabetes Type II:: Yes Hypertension:: Yes Dyslipidemia:: Yes PTCA:: Yes Discharge/Home/Social Eval Discharge Disposition: Home Cardiac Rehabilitation Info Cardiac Rehabilitation Program Information: Cardiac Rehabilitation is important for patients like you who are recovering from a heart problem. Cardiac rehabilitation programs are recognized as integral to the continued care of the patient with coronary heart disease. The cardiac rehabilitation program is designed to optimize a patient's physical, psychological, and social functioning. Health care center manager work in cardiac rehabilitation programs and assist you with getting the treatments you need to get stronger and healthier - like exercise, healthy eating habits, and medications. Cardiac rehabilitation has been show to help people with heart problems live longer and have better life enjoyment than people who do not go to cardiac rehabilitation. Please contact the Cardiac Rehabilitation Program at [facility] at in two weeks if you have not heard from them.
--- NOTE | 2019-07-28 13:16 | CRPH1.INSTRU ---
General Education CAD and cardiac anatomy and function:: Patient communicates acknowledgment Explanation of diagnoses and procedures:: Patient communicates acknowledgment Sign/Symptoms of MN:: Patient communicates acknowledgment Antiplatelet therapy: Patient communicates acknowledgment Proper use of NTG-SL: Not instructed Emergency procedures and activation of EMS: Patient communicates acknowledgment Compliance of all prescribed medications: Patient communicates acknowledgment Smoking Nicotine/Smoking Response Code:: Patient communicates acknowledgment Dyslipidemia Dyslipidemia Response Code:: Patient communicates acknowledgment Overweight/Obesity Patient Overweight/Obesity Risk Factors Are:: Overweight = 26-29 Recommendations Include:: Weight loss of 5-10%, Reduced calorie diet, Exercise 5-7 times/week Overweight/Obesity:: Patient communicates acknowledgment Hypertension Hypertension:: Patient communicates acknowledgment Heart Disease Patient Heart Disease Risk Factors Are:: Family history of heart disease < 65 years old, Previous cardiac event Heart Disease Response Code:: Patient communicates acknowledgment Diabetes Patient Diabetes Risk Factors Are:: Elevated blood sugars Diabetes:: Patient communicates acknowledgment Metabolic Syndrome Metabolic Syndrome Response Code:: Patient communicates acknowledgment Sedentary Sedentary Response Code:: Patient communicates acknowledgment
[2019-07-28] MEDS: Nitroglycerin (INPATIENT USE) 0.4 MG TAB.SUBL SUBLINGUAL (13:44)
[2019-07-28] MEDS: Isosorbide Mononitrate 30 MG Tablet PO (13:45)
--- NOTE | 2019-07-28 14:05 | DCINST_ITS ---
Discharge Diet: Low fat/ Low Cholesterol Discharge Activity: Return to Normal Activity May shower in (days): 1 - No tub baths for 5 days May resume sexual activity in: 1-2 weeks Lifting Restrictions: Do not lift anything greater than 10 pounds for 3 days Call your doctor if your incision/area has: Continuous Slow Oozing, Sudden Increased Bleeding, Increased Pain/ Swelling, Increased Redness, Foul Smelling Discharge, Swelling at the incision site Call your doctor if you observe: Fever of 101 or Higher, Shortness of breath, Chest pain Remove Dressing in (days):: 1 Cleanse incision/area with: Soap & Water Additional Instructions: You will continue with Aspirin and Plavix therapy. The goal is to remain on Plavix therapy for at least 1 year. If anyone asks you to stop your Plavix, please call the [facility] Office at [phone]. You are scheduled for an office appointment on 08/12/2019 at 2 PM with Arely Ford, Physician Production Control Technologist. If there are any questions or concerns please call [facility] Office at [phone] and hit option 4 to speak with the nurse. Allergies/Adverse Reactions: Allergies celecoxib [From Celebrex] Allergy (Verified 07/08/19 13:03) Other Medications to take at Discharge Atorvastatin Calcium [Lipitor] 80 mg PO QHS 01/27/19 Carvedilol 6.25 mg PO BID 01/27/19 Lisinopril 40 mg PO DAILY 01/27/19 Metformin HCl 1,000 mg PO BID 01/27/19 aspirin 81 mg tablet,delayed release 81 mg PO DAILY 04/06/19 nitroglycerin 0.4 mg sublingual tablet 0.4 mg SUBLINGUAL Q5-15M PRN 04/06/19 vit B complex 100 combo no.2 100 mg tablet,extended release 1 tab PO DAILY tab 04/06/19 amlodipine 5 mg tablet 5 mg PO DAILY #90 tab 04/08/19 clopidogrel 75 mg tablet 75 mg PO DAILY #30 tab 07/22/19 Primary Care Physician: Brandon Choi MD [Primary Care Provider] - Test Results: Test results from this visit will be discussed in further detail at your follow- up appointment, if applicable. Please Follow Up With: Arely Blackwood When: 08/12/2019 sy 2:00 PM Proposed Discharge Date: 07/29/19 Cardiac Rehabilitation Info Cardiac Rehabilitation Program Information: Cardiac Rehabilitation is important for patients like you who are recovering from a heart problem. Cardiac rehabilitation programs are recognized as integral to the continued care of the patient with coronary heart disease. The cardiac rehabilitation program is designed to optimize a patient's physical, psychological, and social functioning. Health certified social workers in health care work in cardiac rehabilitation programs and assist you with getting the treatments you need to get stronger and healthier - like exercise, healthy eating habits, and medications. Cardiac rehabilitation has been show to help people with heart problems live longer and have better life enjoyment than people who do not go to cardiac rehabilitation. Please contact the Cardiac Rehabilitation Program at [facility] at in two weeks if you have not heard from them.
--- NOTE | 2019-07-28 14:08 | PCM.PN.BLA ---
Progress Note Aspirin at discharge? Yes, 81 mg p.o. daily Antiplatelet therapy at discharge? Yes, Plavix 75 mg p.o. daily DAVION/ARB at discharge? Yes, lisinopril 40 mg p.o. daily Statin at discharge? Yes, atorvastatin 80 mg p.o. daily Beta-rosa maria at discharge? Yes, carvedilol 6.25 mg p.o. twice daily STROKE Vital Signs/Narrative: Vital Signs Temp Pulse Resp BP Pulse Ox 07/28/19 13:44 62 163/79 H 07/28/19 13:00 64 15 163/79 H 98 07/28/19 12:30 65 16 179/77 H 98 07/28/19 12:00 97.8 F 66 14 171/86 H 99 07/28/19 11:45 100 07/28/19 11:30 62 12 169/75 H 98 07/28/19 11:15 72 13 144/73 H 98 07/28/19 11:00 63 18 140/77 H 96 07/28/19 10:45 62 14 150/94 H 98 07/28/19 10:41 61 07/28/19 10:30 97.5 F L 62 17 159/67 H 99
[2019-07-28 16:30] LABS: Bedside Glucose 126 mg/dL (70-110)
[2019-07-28 20:41] LABS: Bedside Glucose 163 mg/dL (70-110)
[2019-07-28] MEDS: Acetaminophen 325 MG Tablet 650 MG PO (20:42)
[2019-07-28] MEDS: Atorvastatin Calcium 80 MG Tablet PO (20:43)
[2019-07-28] MEDS: Carvedilol 6.25 MG Tablet PO (20:44)
[2019-07-28] MEDS: Insulin Lispro 100 UNIT/ML INSULN.PEN SC (20:46)
[2019-07-29] VITALS (14 sets, daily range): BP systolic 121–163; BP diastolic 50–82; PULSE 59–98; RESP 14–19; TEMP 36.6; O2SAT 94–98
[2019-07-29] MEDS: 0.9% Saline Lock 10 ML Syringe IV (04:02)
[2019-07-29 04:12] LABS: Hematocrit 33.3 % (40-54); Hemoglobin 11.5 g/dL (13.0-16.5); Mean Corp Hgb Conc 34.5 g/dL (32-36); Mean Corpuscular Hgb 33.1 pg (27.0-32.0); Mean Platelet Vol. 10.9 fl (6.2-12.0); Platelet Count 165 K/mm3 (150-450); RBC Distribution Width CV 13.7 % (11.6-14.6); RBC Distribution Width SD 48.7 fl (35.1-43.9); Red Blood Count 3.47 M/mm3 (4.6-6.2); White Blood Count 5.7 K/mm3 (4.4-11.0)
[2019-07-29 05:15] LABS: ALB/GLOB Ratio 1.1 RATIO (0.9-2.4); AST(SGOT) 16 U/L (15-37); Alanine Aminotransfer ALT/SGPT 31 U/L (16-61); Albumin, Serum 3.5 g/dL (3.2-5.0); Alkaline Phosphatase 74 U/L (45-117); Anion Gap 6 (5-15); BUN 13 mg/dL (7-18); BUN/Creat Ratio 15.7 RATIO (10-20); Calcium,Total 8.3 mg/dL (8.5-10.1); Chloride 107 mmol/L (98-107); Creatinine, Serum 0.83 mg/dL (0.70-1.30); EST Glomerular Filtration Rate 99 mL/min (>60); Est Glom Filt Rate - Afr Amer 120 mL/min (>60); Estimated Creatinine Clearance 96.09 ml/min; Globulin 3.1 g/dL (2.2-4.2); Glucose 123 mg/dL (74-106); Potassium 3.7 mmol/L (3.5-5.1); Protein, Total 6.6 g/dL (6.4-8.2); Sodium Level 140 mmol/L (136-145)
[2019-07-29 06:55] LABS: Bedside Glucose 134 mg/dL (70-110)
[2019-07-29] MEDS: Clopidogrel Bisulfate 75 MG Tablet PO (08:11)
[2019-07-29] MEDS: Lisinopril 40 MG Tablet PO (08:12)
[2019-07-29] MEDS: Aspirin E.C. 81 MG Tablet PO (08:12)
[2019-07-29] MEDS: amLODIPine 5 MG Tablet PO (08:12)
[2019-07-29] MEDS: Isosorbide Mononitrate 30 MG Tablet PO (08:12)
[2019-07-29] MEDS: Carvedilol 6.25 MG Tablet PO (08:12)
--- NOTE | 2019-07-29 09:39 | DS.PCM_ITS ---
Discharge Date and Diagnosis Date of Admission: 07/28/19 Date of Discharge: 07/29/19 - Primary Discharge Diagnosis CAD status post PCI - Secondary Discharge Diagnosis Chronic Problems CAD (coronary artery disease) (Chronic) Presence of stent in coronary artery (Chronic ~07/28/19) Successful PTCA/MICHELE of distal RCA with a 3.5 x 16 Promus Synergy, 75%-->0%, no dissection. Successful PTCA/MICHELE proximal RCA with a 3.5 x 28 Promus Synergy, post dilated with a 4.0 x 8 NC, followed at ostium with a 4.5 x 8 NC balloon; 75%-->0%, no dissection. 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 The patient underwent diagnostic cardiac catheterization was found to have progression of his ute vessel disease in the RCA distribution. He subsequently underwent RCA PCI. He remained in the ICU overnight. He appeared to be symptomatically and hemodynamically stable. He had no acute changes on his electrocardiogram. This day he was thought stable to be released home for continued outpatient cardiovascular follow-up and outpatient cardiac rehabilitation. [] Subjective: The patient is awake and alert and appears to be resting comfortably. - Physical Exam Vitals/I&O's: Vital Signs Temp Pulse Resp BP Pulse Ox 98 F 98 15 143/82 H 96 07/29/19 08:00 07/29/19 09:00 07/29/19 09:00 07/29/19 09:00 07/29/19 09:00 Oxygen Delivery Method Room Air Weight: 214 lb 15.987 oz Body Mass Index (BMI) 28.5 Intake and Output for Last 24 Hours 07/27/19 07/28/19 07/29/19 23:59 23:59 23:59 Intake Total 2039 240 / 240 Output Total 350 / 350 Balance 1690 / 169 240 / 240 General: Alert, Oriented x3, Cooperative HEENT: Atraumatic, PERRLA, EOMI, Normocephalic Oral: Moist Mucosa Neck: Supple, No JVD Lungs: Clear to auscultation Cardiovascular: Regular rate, Regular Rhythm, Normal S1, Normal S2 Abdomen: Bowel Sounds Present, Soft, Non Tender Extremities: No edema Neurological: Neuro grossly intact Psych/Mental Status: Normal Affect Comment: Right inguinal area: Right femoral pulse 2+/4+; no bruit; no hematoma Laboratory Results 07/28/19 09:40: Activated Clotting Time 164 H 07/28/19 11:03: POC Glucose 136 H 07/28/19 16:23: POC Glucose 126 H 07/28/19 20:37: POC Glucose 163 H 07/29/19 03:55: WBC 5.7, RBC 3.47 L, Hgb 11.5 L, Hct 33.3 L, MCV 96.0 H, MCH 33.1 H, MCHC 34.5, RDW Std Deviation 48.7 H, RDW Coeff of Jolene 13.7, Plt Count 165, MPV 10.9 07/29/19 03:55: Sodium 140, Potassium 3.7, Chloride 107, Carbon Dioxide 27.0, Anion Gap 6, BUN 13, Creatinine 0.83, Estim Creat Clear Calc 96.09, Est GFR (MDRD) Af Amer 120, Est GFR (MDRD) Non-Af 99, BUN/Creatinine Ratio 15.7, Glucose 123 H, Calcium 8.3 L, Total Bilirubin 0.70, AST 16, ALT 31, Alkaline Phosphatase 74, Total Protein 6.6, Albumin 3.5, Globulin 3.1, Albumin/Globulin Ratio 1.1 07/29/19 06:52: POC Glucose 134 H Current Medications Acetaminophen (Tylenol) 650 mg PO Q6H PRN PRN PRN Reason: Pain Score 1-3/10 Last Admin: 07/28/19 20:42 Dose: 650 mg Documented by: Amlodipine Besylate (Norvasc) 5 mg PO DAILY [facility] Last Admin: 07/29/19 08:12 Dose: 5 mg Documented by: Aspirin (Ecotrin) 81 mg PO DAILY@0800 [facility] Last Admin: 07/29/19 08:12 Dose: 81 mg Documented by: Atorvastatin Calcium (Lipitor) 80 mg PO QHS [facility] Last Admin: 07/28/19 20:43 Dose: 80 mg Documented by: Atropine Sulfate () 0.5 mg IV UD PRN PRN Reason: HR <50 bpm Carvedilol (Coreg) 6.25 mg PO BID [facility] Last Admin: 07/29/19 08:12 Dose: 6.25 mg Documented by: Clopidogrel Bisulfate (Plavix) 75 mg PO DAILY [facility] Last Admin: 07/29/19 08:11 Dose: 75 mg Documented by: Heparin Sodium (Beef Lung) (Heparin 500 Unit/5 Ml (100/Ml)) 500 unit IV UD PRN PRN Reason: HEPARIN FLUSH Insulin Human Lispro (Humalog Kwikpen (Bkc)) 0 unit SC ACHS [facility]; Protocol Last Admin: 07/29/19 06:56 Dose: Not Given Documented by: Isosorbide Mononitrate (Imdur) 30 mg PO DAILY [facility] Last Admin: 07/29/19 08:12 Dose: 30 mg Documented by: Labetalol HCl (Trandate) 5 mg IV X1 PRN PRN Reason: SBP > 160 when pulling sheath Lisinopril (Zestril) 40 mg PO DAILY [facility] Last Admin: 07/29/19 08:12 Dose: 40 mg Documented by: Lorazepam (Ativan) 1 mg PO Q6H PRN PRN PRN Reason: BACK SPASMS/ANXIETY Metoclopramide HCl (Reglan) 5 mg IV Q6H PRN PRN PRN Reason: NAUSEA/VOMITING Morphine Sulfate () 2 - 4 mg IV Q4H PRN PRN PRN Reason: Pain Score 1-10/10 Morphine Sulfate () 2 - 4 mg IV Q4H PRN PRN PRN Reason: Pain Score 1-10/10 Nitroglycerin (Nitrostat) 0.4 mg SUBLINGUAL Q5M PRN PRN Reason: chest pain Sodium Chloride () 500 ml IV BOLUS PRN PRN Reason: VASO-VAGAL PROTOCOL Sodium Chloride () 10 - 40 ml IV UD PRN PRN Reason: SALINE FLUSH Last Admin: 07/29/19 04:02 Dose: 10 ml Documented by: Discharge Diet: Low fat/ Low Cholesterol Discharge Activity: Return to Normal Activity May shower in (days): 1 - No tub baths for 5 days May resume sexual activity in: 1-2 weeks Call your doctor if your incision/area has: Continuous Slow Oozing, Sudden Increased Bleeding, Increased Pain/ Swelling, Increased Redness, Foul Smelling Discharge, Swelling at the incision site Call your doctor if you observe: Fever of 101 or Higher, Shortness of breath, Chest pain Remove Dressing in (days):: 1 Cleanse incision/area with: Soap & Water Home Medications: Medications to take at Discharge Atorvastatin Calcium [Lipitor] 80 mg PO QHS 01/27/19 Carvedilol 6.25 mg PO BID 01/27/19 Lisinopril 40 mg PO DAILY 01/27/19 Metformin HCl 1,000 mg PO BID 01/27/19 aspirin 81 mg tablet,delayed release 81 mg PO DAILY 04/06/19 nitroglycerin 0.4 mg sublingual tablet 0.4 mg SUBLINGUAL Q5-15M PRN 04/06/19 vit B complex 100 combo no.2 100 mg tablet,extended release 1 tab PO DAILY tab 04/06/19 amlodipine 5 mg tablet 5 mg PO DAILY #90 tab 04/08/19 clopidogrel 75 mg tablet 75 mg PO DAILY #30 tab 07/22/19 Other Amb Orders: Phase II, Outpatient Cardiac Rehab Location: None Selected Primary Care Physician: Brandon Choi MD [Primary Care Provider] - Please Follow Up With: Arely Blackwood When: 08/12/2019 sy 2:00 PM Additional Instructions: You will continue with Aspirin and Plavix therapy. The goal is to remain on Plavix therapy for at least 1 year. If anyone asks you to stop your Plavix, please call the [facility] Office at [phone]. You are scheduled for an office appointment on 08/12/2019 at 2 PM with Aerly Ford, Physician Personnel Coordinator. If there are any questions or concerns please call [facility] Office at [phone] and hit option 4 to speak with the nurse. Disposition: Home Minutes spent on discharge:: 45 Patient Condition:: Stable Medical Necessity - Tobacco Use Smoking Status: Former smoker Meaningful Use Info Meaningful Use Diagnoses (Choose all that apply): None applicable
--- NOTE | 2019-07-29 10:00 | EKG12_ITS ---
Test Reason : AM EKG Blood Pressure : / mmHG Vent. Rate : 062 BPM Atrial Rate : 062 BPM P-R Int : 152 ms QRS Dur : 090 ms QT Int : 412 ms P-R-T Axes : 029 007 053 degrees QTc Int : 418 ms Normal sinus rhythm Normal ECG When compared with ECG of 28-JAN-2019 05:42, Nonspecific T wave abnormality no longer evident in Inferior leads Confirmed by RADHA HAMMOND ([id number]), graphic editor DREW TRUJILLO ([id number]) on 08/09/2019 11:42:50 AM Referred By: Bolivar Nails Confirmed By:RADHA HAMMOND
== END 2019-07-29 11:00 | disposition home or self-care (01) ==
LOC: CLSP 07:05 → ICU 10:08
PROVIDERS: Internal Medicine Cardiovascular Disease; PCP Family Medicine; Referring Provider Internal Medicine Cardiovascular Disease; Visit Provider Internal Medicine Cardiovascular Disease
DX: I25.118 Atherosclerotic heart disease of native coronary artery with other forms of angina pectoris (principal); K21.9 Gastro-esophageal reflux disease without esophagitis; E78.2 Mixed hyperlipidemia; I25.2 Old myocardial infarction; I10 Essential (primary) hypertension; E11.9 Type 2 diabetes mellitus without complications; F10.10 Alcohol abuse, uncomplicated; E66.9 Obesity, unspecified; R06.02 Shortness of breath; R94.39 Abnormal result of other cardiovascular function study; Y90.9 Presence of alcohol in blood, level not specified; Z95.5 Presence of coronary angioplasty implant and graft; Z79.82 Long term (current) use of aspirin; Z79.02 Long term (current) use of antithrombotics/antiplatelets; Z79.84 Long term (current) use of oral hypoglycemic drugs; Z79.899 Other long term (current) drug therapy; Z87.891 Personal history of nicotine dependence
CPT/HCPCS: 36415; 71046; 80048; 80053; 82962; 85027; 85347; 85610; 85730; 92928; 93005; 93458; J7030; J7040; A4216; C1725; C1769; C1874; C1887; C1894; C9600; Q9967

== ENCOUNTER → 2020-09-26 08:04 | Outpatient (CLI) | payer MEDICARE, BC, SELFPAY ==
[2019-07-28 13:16] VITALS: BMI 29.1
[2020-08-21 15:25] VITALS: BMI 29.2
[2020-09-26 10:48] LABS: AST(SGOT) 13 U/L (15-37); Alanine Aminotransfer ALT/SGPT 32 U/L (16-61); Albumin, Serum 3.8 g/dL (3.2-5.0); Alkaline Phosphatase 89 U/L (45-117); Bilirubin, Direct 0.17 mg/dL (0.00-0.30); Cholesterol 140 mg/dL (200); Globulin 3.1 g/dL (2.2-4.2); High Density Lipoprotein 53 mg/dL; Protein, Total 6.9 g/dL (6.4-8.2); Triglycerides 65 mg/dL; Very Low Density Lipoprotein 13 mg/dL (5-40)
== END ==
PROVIDERS: PCP Family Medicine; Referring Provider Internal Medicine Cardiovascular Disease; Visit Provider Internal Medicine Cardiovascular Disease
DX: E78.00 Pure hypercholesterolemia, unspecified (principal)
CPT/HCPCS: 36415; 80061; 80076